=== PATIENT | male | born 1980 | race Caucasian/White ===

== ENCOUNTER 2021-02-08 09:15 | Outpatient (CLI) | payer OTHER, MEDICAID, SELFPAY | END 2021-02-08 09:16 | disposition home or self-care (01) | DX: H91.93 Unspecified hearing loss, bilateral (principal) | CPT/HCPCS: 92555; 92567; 92579 ==

== ENCOUNTER 2022-02-21 13:08 | Outpatient (CLI) | payer OTHER, MEDICAID, SELFPAY | END 2022-02-21 13:09 | disposition home or self-care (01) | PROVIDERS: Visit Provider Family Medicine | DX: H91.93 Unspecified hearing loss, bilateral (principal) | CPT/HCPCS: 92555; 92567; 92579 ==

== ENCOUNTER 2023-02-21 12:38 | Outpatient (CLI) | payer BC, SELFPAY | END 2023-02-21 12:39 | disposition home or self-care (01) | LOC: ANHBWCAUD 12:38 | PROVIDERS: Visit Provider Family Medicine | DX: H91.93 Unspecified hearing loss, bilateral (principal) | CPT/HCPCS: 92555; 92567; 92579 ==

== ENCOUNTER 2024-03-12 09:00 | Outpatient (CLI) | payer BC, SELFPAY | END 2024-03-12 09:01 | disposition home or self-care (01) | LOC: ANHBWCAUD 09:01 | PROVIDERS: Visit Provider Family Medicine | DX: H91.93 Unspecified hearing loss, bilateral (principal) | CPT/HCPCS: 92567 ==

== ENCOUNTER 2025-08-25 08:40 | Outpatient (CLI) | payer BC, SELFPAY ==
--- OUTSIDE RECORDS SUMMARY | 2025-08-25 08:52 | XMS_ITS | Encounter Summary ---
Author Organization [facility] Address [address] [facility] [place] [address] Phone Care Team Providers Care Wireworker Supervisor Name Role Phone Huan Brambila MD Primary Care Provider [phone] Huan Brambila MD Unavailable [phone] Fortunato Rothman MD Unavailable [phone] Encounter Details Date Type Department Care Team (Late st Contact Info) Description 03/08/[address] [facility] 1 [facility] [place] [address] Huan Brambila MD 4 [facility] [address] [place] [address] Encounter for screening for COVID-19 Social History Tobacco Use Types Packs/Day Years Used Date Smoking Tobacco: Never Smokeless Tobacco: Never Sex and Gender Information Value Date Recorded Sex Assigned at Not on file Legal Sex Male 11:39 PM CDT Gender Identity Not on file Sexual Orientation Not on file documented as of this encounter Plan of Treatment Upcoming Encounters Date Type Department Care Team (Late st Contact Info) Description 02/10/2026 11:30 AM CDT Office Visit [facility] Medical Group - Ear, Nose & Throat - [place] [address] [place] [address] Fortunato Rothman MD #[address] [address] documented as of this encounter Procedures Procedure Name Priority Date/Time Associated Diagnosis Comments SARS-COV-2 BY MOLECULAR Routine 03/08/2022 7:03 AM CDT Encounter for screening for COVID-19 documented in this encounter Results * SARS-COV-2 BY MOLECULAR (03/08/2022 7:03 AM CDT) SARSCOV2 NOT DETECTED (Referen ce Range for this test is Not Detected ) [facility] THERMOFISHER FAST DX 03/09/2022 10:50 AM CDT [facility] Comment:This test was perfor med by a RT-PCR method. Other No Phlebotomy Charged / Unknown 03/08/2022 7:03 AM CDT 03/08/2022 11:43 AM CDT Narrative [facility] - 03/09/2022 10:50 AM CDT Authorized Fact Sheets about this test for providers and patients are available at: https://www.fda.gov/medical-devices/olhobviwz-bgavvjzctt-szdaixo-devices/emergen cy-us e-authorizations us Huan Brambila MD MICROBIOLOGY - GENERAL ORDERAB LES Final Result [facility] [address] [place] [address], documented in this encounter Visit Diagnoses Diagnosis Encounter for screening for COVID-19 documented in this encounter Additional Health Concerns Infection Onset Date Last Indicated Resolved Time COVID - 19 03/01/2022 10/04/2022 10/14/2022 12:1 6 AM 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
--- OUTSIDE RECORDS SUMMARY | 2025-08-25 08:52 | XMS_ITS | Encounter Summary ---
Author Organization [facility] Address [address] [facility] [place] [address] Phone Care Team Providers Care Customer Account Manager Name Role Phone Huan Brambila MD Primary Care Provider Huan Brambila MD Unavailable [phone] Fortunato Rothman MD Unavailable [phone] Encounter Details Date Type Department Care Team (Late st Contact Info) Description 03/29/2022 [facility] 1 [facility] [place] [address] Huan Brambila MD 4 [facility] [address] [place] [address] Encounter for screening for COVID-19 [...] Description 02/10/2026 11:30 AM CDT Office Visit [facility] Medical Group - Ear, Nose & Throat - [place] [address] [place] [address] Fortunato Rothman MD #[address] [address] documented as of this encounter Procedures Procedure Name Priority Date/Time Associated Diagnosis Comments SARS-COV-2 BY MOLECULAR Routine 03/29/2022 6:38 AM CDT Encounter for screening for COVID-19 documented in this encounter Results * SARS-COV-2 BY MOLECULAR (03/29/2022 6:38 AM CDT) SARSCOV2 NOT DETECTED (Referen ce Range for this test is Not Detected ) [facility] THERMOFISHER FAST DX 03/29/2022 11:40 PM [address] [facility] Comment:This test was perfor med by a RT-PCR method. Other Non-Phlebotomy Collection / Unknown 03/29/2022 6:38 AM CDT 03/29/2022 12:17 PM CDT Narrative [facility] - 03/29/2022 11:40 PM CDT Authorized Fact Sheets about this test for providers and patients are available at: https://www.fda.gov/medical-devices/srcpqbnzv-hmjmyskepd-avkebtw-devices/emergen cy-us e-authorizations us Huan Brambila MD MICROBIOLOGY - GENERAL ORDERAB LES Final Result [facility] [address] [place] [address], documented in this encounter Visit Diagnoses Diagnosis Encounter for screening for COVID-19 documented in this encounter Additional Health Concerns Infection Onset Date Last Indicated Resolved Time COVID - 19 03/01/2022 10/04/2022 10/14/2022 12:1 6 AM 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 [address] [place] [address] Family Medicine 10/05/21 Fortunato Rothman MD [address] [address] [place] [address] Consulting Physician Otolaryngology 07/22/25 documented as of this encounter
--- OUTSIDE RECORDS SUMMARY | 2025-08-25 08:52 | XMS_ITS | Encounter Summary ---
Author Organization [facility] Address [address] [facility] [place] [address] Phone Care Team Providers Care Team Truck Driver Name Role Phone Huan Brambila MD Primary Care Provider [phone] Huan Brambila MD Unavailable [phone] Fortunato Rothman MD Unavailable [phone] Encounter Details Date Type Department Care Team (Late st Contact Info) Description 01/24/2023 [facility] 1 [facility] [place] [address] Huan Brambila MD 4 [facility] [address] [place] [address] Encounter for screening for COVID-19 [...] Description 02/10/2026 11:30 AM CDT Office Visit [facility] Medical Group - Ear, Nose & Throat - [place] [address] [place] [address] Fortunato Rothman MD #[address] [phone] documented as of this encounter Procedures Procedure Name Priority Date/Time Associated Diagnosis Comments SARS-COV-2 BY MOLECULAR Routine 01/24/2023 7:31 AM RUG BACKING STENCILER Encounter for screening for COVID-19 documented in this encounter Results * SARS-COV-2 BY MOLECULAR (01/24/2023 7:31 AM RUG BACKING STENCILER) SARSCOV2 NOT DETECTED (Referen ce Range for this test is Not Detected ) [facility] THERMOFISHER FAST DX 01/25/2023 8:02 AM RUG BACKING STENCILER [facility] Comment:This test was perfor med by a RT-PCR method. Other Non-Phlebotomy Collection / Unknown 01/24/2023 7:31 AM RUG BACKING STENCILER 01/24/2023 10:51 AM RUG BACKING STENCILER Narrative [facility] - 01/25/2023 8:02 AM RUG BACKING STENCILER Authorized Fact Sheets about this test for providers and patients are available at: https://www.fda.gov/medical-devices/alozmglck-abvsclqqra-fsjhdgv-devices/emergen -us e-authorizations Result [facility] Huan Brambila MD MICROBIOLOGY - GENERAL ORDERAB LES Final Result Performing Organization Address City/State/[facility] Co de Phone Number [facility] [address] [place] [address], documented in this encounter Visit Diagnoses Diagnosis Encounter for screening for COVID-19 documented in this encounter Additional Health Concerns Infection Onset Date Last Indicated Resolved Time COVID - 19 11/22/2022 02/07/2023 02/17/2023 12:1 6 AM CDT documented as of this encounter Care Teams Team Truck Driver Relationship Specialty Start Date End Date Huan Brambila MD [address] [place] [address] [place] [address] PCP - General Family Medicine 10/05/21 Huan Brambila MD [address] [place] [address] [place] [address] Family Medicine 10/05/21 Fortunato Rothman MD [address] [address] Consulting Physician Otolaryngology 07/22/25 documented as of this encounter
--- OUTSIDE RECORDS SUMMARY | 2025-08-25 08:52 | XMS_ITS | Encounter Summary ---
Author Organization [facility] Address [address] [facility] [place] [address] Phone Care Team Providers Care Retort Furnace Operator Name Role Phone Huan Brambila MD Primary Care Provider Huan Brambila MD Unavailable [phone] Fortunato Rothman MD Unavailable [phone] Encounter Details Date Type Department Care Team (Late st Contact Info) Description 03/01/2022 [facility] 1 [facility] [place] [address] Huan Brambila MD 4 [facility] [address] [place] [address] Encounter for screening for other viral diseases Social History Tobacco Use Types Packs/Day Years [...] Description 02/10/2026 11:30 AM CDT Office Visit [facility] Medical Group - Ear, Nose & Throat - [place] [address] [place] [address] Fortunato Rothman MD [address] [address] documented as of this encounter Procedures Procedure Name Priority Date/Time Associated Diagnosis Comments SARS-COV-2 BY MOLECULAR Routine 03/01/2022 6:46 AM CDT Encounter for screening for other viral diseases documented in this encounter Results * SARS-COV-2 BY MOLECULAR (03/01/2022 6:46 AM CDT) SARSCOV2 NOT DETECTED (Referen ce Range for this test is Not Detected ) [facility] THERMOFISHER FAST DX 03/01/2022 11:28 PM CDT [facility] Comment:This test was perfor med by a RT-PCR method. Other No Phlebotomy Charged / Unknown 03/01/2022 6:46 AM CDT 03/01/2022 12:04 PM CDT Narrative [facility] - 03/01/2022 11:28 PM CDT Authorized Fact Sheets about this test for providers and patients are available at: https://www.fda.gov/medical-devices/imskdtjak-oerzhqwwji-qazelfo-devices/emergen -us e-authorizations Result [facility] Huan Brambila MD MICROBIOLOGY - GENERAL ORDERAB LES Final Result [facility] [address] [place] [address], documented in this encounter Visit Diagnoses Diagnosis Encounter for screening for other viral diseases documented in this encounter Additional Health Concerns Infection Onset Date Last Indicated Resolved Time COVID - 19 03/01/2022 10/04/2022 10/14/2022 12:1 6 AM 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
--- OUTSIDE RECORDS SUMMARY | 2025-08-25 08:52 | XMS_ITS | Encounter Summary ---
Author Organization [facility] Address [address] [place] [address] Phone Care Team Providers Care Grain Spouter Name Role Phone Huan Brambila MD Primary Care Provider Huan Brambila MD Unavailable [phone] Fortunato Rothman MD Unavailable [phone] Encounter Details Date Type Department Care Team (Late st Contact Info) Description 01/31/2023 [facility] 1 [facility] [place] [address] Huan Brambila MD 4 [facility] [address] [place] [address] Encounter for screening for COVID-19 [...] Description 02/10/2026 11:30 AM CDT Office Visit [facility] Medical Group - Ear, Nose & Throat - [place] [address] [place] [address] Fortunato Rothman MD #[address] [phone] documented as of this encounter Procedures Procedure Name Priority Date/Time Associated Diagnosis Comments SARS-COV-2 BY MOLECULAR Routine 01/31/2023 7:11 AM VP SOFTWARE SUPPORT Encounter for screening for COVID-19 documented in this encounter Results * SARS-COV-2 BY MOLECULAR (01/31/2023 7:11 AM VP SOFTWARE SUPPORT) SARSCOV2 NOT DETECTED (Referen ce Range for this test is Not Detected ) [facility] THERMOFISHER FAST DX 01/31/2023 7:37 PM VP SOFTWARE SUPPORT [facility] Comment:This test was perfor med by a RT-PCR method. Other Non-Phlebotomy Collection / Unknown 01/31/2023 7:11 AM VP SOFTWARE SUPPORT 01/31/2023 9:54 AM VP SOFTWARE SUPPORT [facility]ative [facility] - 01/31/2023 7:37 PM VP SOFTWARE SUPPORT Authorized Fact Sheets about this test for providers and patients are available at: https://www.fda.gov/medical-devices/sfpkzxqwi-wxfgtbozgv-yleeuow-devices/emergen -us e-authorizations Result [facility] Huan Brambila MD MICROBIOLOGY - GENERAL ORDERAB LES Final Result Performing Organization Address City/State/[facility] Co de Phone Number [facility] [address] [place] [address], documented in this encounter Visit Diagnoses Diagnosis Encounter for screening for COVID-19 documented in this encounter Additional Health Concerns Infection Onset Date Last Indicated Resolved Time COVID - 19 11/22/2022 02/07/2023 02/17/2023 12:1 6 AM CDT documented as of this encounter Care Teams Grain Spouter Relationship Specialty Start Date End Date Huan Brambila MD [address] [place] [address] [place] [address] PCP - General Family Medicine 10/05/21 Huan Brambila MD [address] [place] [address] [place] [address] Family Medicine 10/05/21 Fortunato Rothman MD [address] [address] Consulting Physician Otolaryngology 07/22/25 documented as of this encounter
--- OUTSIDE RECORDS SUMMARY | 2025-08-25 08:52 | XMS_ITS | Encounter Summary ---
Author Organization [facility] Address [address] [facility] [place] [address] Phone Care Team Providers Care Hospital Recruiter Name Role Phone Huan Brambila MD Primary Care Provider [phone] Huan Brambila MD Unavailable [phone] Fortunato Rothman MD Unavailable [phone] Encounter Details Date Type Department Care Team (Late st Contact Info) Description 03/18/2025 [facility] 1 [facility] [place] [address] Huan Brambila MD [address] [facility] [place] [address] Major depressive disorder, recurrent, mild (HCC); Severe intellectual disabilities; Vitamin D deficiency, unspecified; Down syndrome, unspecified Social History Tobacco Use Types Packs/Day Years [...] Description 02/10/2026 11:30 AM CDT [facility] Visit [facility] [place] #[address] [place] [address] Fortunato Rothman MD #[facility] [address] [address] documented as of this encounter Procedures Procedure Name Priority Date/Time Associated Diagnosis Comments VITAMIN D, 25 HYDROXY TOTAL Routine 03/18/2025 7:09 AM CDT Major depressive disorder, recurrent, mild (HCC) Severe intellectual disabilities Vitamin D deficiency, unspecified Down syndrome, unspecified CBC WITH AUTO DIFFERENTIAL Routine 03/18/2025 7:09 AM CDT Major depressive disorder, recurrent, mild (HCC) Severe intellectual disabilities Vitamin D deficiency, unspecified Down syndrome, unspecified THYROXINE (T4) FREE Routine 03/18/2025 7 :09 AM CDT Major depressive disorder, recurrent, mild (HCC) Severe intellectual disabilities Vitamin D deficiency, unspecified Down syndrome, unspecified THYROID STIMULATING HORMONE (TSH) Routine 03/18/2025 7:09 AM CDT Major depressive disorder, recurrent, mild (HCC) Severe intellectual disabilities Vitamin D deficiency, unspecified Down syndrome, unspecified LIPID PANEL Routine 03/18/2025 7:09 AM CDT Major depressive disorder, recurrent, mild (HCC) Severe intellectual disabilities Vitamin D deficiency, unspecified Down syndrome, unspecified CMP (COMPREHENSIVE METABOLIC PANEL) Routine 03/18/2025 7:09 AM CDT Major depressive disorder, recurrent, mild (HCC) Severe intellectual disabilities Vitamin D deficiency, unspecified Down syndrome, unspecified COMPLETE BLOOD COUNT (CBC) WITH DIFF Routine 03/18/2025 7:09 AM CDT Major depressive disorder, recurrent, mild (HCC) Severe intellectual disabilities Vitamin D deficiency, unspecified Down syndrome, unspecified documented in this encounter Results * (ABNORMAL) CBC WITH AUTO DIFFERENTIAL (03/18/2025 7:09 AM CDT) WBC 4.82 4.00 - 12.00 10(3)/mcL 03/18/2025 8:[address] [facility] RBC 5.29 4.40 - 5.80 10(6)/mcL 03/18/2025 8:[address] [facility] HEMOGLOBIN (HGB) 17.8(H) 13.0 - 16.5 g/dL 03/18/2025 8:[address] [facility] HEMATOCRIT (HCT) 50.5(H) 38.0 - 50.0 % 03/18/2025 8:[address] [facility] MCV 95.5 82.0 - 96.0 fL 03/18/2025 8:[address] [facility] MCH 33.6(H) 26.0 - 32.0 pg 03/18/2025 8:[address] [facility] MCHC 35.2 31.0 - 36.0 g/dL 03/18/2025 8:[address] [facility] PLATELET COUNT 187 140 - 440 10(3)/mcL 03/18/2025 8:[address] [facility] RDW 14.1 11.8 - 15.5 % 03/18/2025 8:[address] [facility] MPV 10.3 8.0 - 12.6 fL 03/18/2025 8:[address] [facility] NEUTROPHILS 48.4 40.0 - 68.0 % 03/18/2025 8:[address] [facility] LYMPHOCYTES 37.8 19.0 - 49.0 % 03/18/2025 8:[address] [facility] MONOCYTES 10.0 3.0 - 13.0 % 03/18/2025 8:[address] [facility] EOSINOPHILS 1.9 0.0 - 8.0 % 03/18/2025 8:[address] [facility] BASOPHILS 1.9(H) 0.0 - 1.0 % 03/18/2025 8:[address] [facility] ABSOLUTE NEUTROPHILS 2.34 1.40 - 5.30 10(3)/mcL 03/18/2025 8:[address] [facility] ABSOLUTE LYMPHOCYTES 1.82 0.90 - 3.30 10(3)/[facility] 03/18/2025 8:[address] [facility] ABSOLUTE MONOCYTES 0.48 0.10 - 0.90 10(3)/[facility] 03/18/2025 8:[address] [facility] ABSOLUTE EOSINOPHIL 0.09 0.00 - 0.50 10(3)/[facility] 03/18/2025 8:[address] [facility] ABSOLUTE BASOPHILS 0.09 0.00 - 0.10 10(3)/[facility] 03/18/2025 8:[address] [facility] NRBC PER 100 WBC 0 03/18/20 8:[address] [facility] Blood Venipuncture / Unknown 03/18/2025 7:09 AM CDT 03/18/2025 8:41 AM CDT us Huan Brambila MD HEMATOLOGY ORDERABLES Final Re sult [facility] [address] [place] [address] * VITAMIN D, 25 HYDROXY TOTAL (03/18/2025 7:09 AM CDT) VITAMIN D, 25 HYDROX 39.8 ng/mL 03/18/2025 9:[address] [facility] Blood Venipuncture / Unknown 03/18/2025 7:09 AM CDT 03/18/2025 8:41 AM CDT Narrative [facility] - 03/18/2025 9:29 AM CDT Published reference ranges for Vitamin D vary depending on time and place and method of testing, and on patient's age, sex, ethnicity and levels of other measured analytes such as parathormone, calcium and phosphorus. The result should be evaluated in conjunction with clinical findings and suspicions. [employer] and Endocrine Clinical Practice Guidelines: Status Vitamin D levels (ng/mL) Deficient <=20 At risk of inadequacy 21-29 Sufficient 30-100 Centers of Disease Control and Prevention Guidelines: Status Vitamin D levels (ng/mL) Deficient <13 At risk of inadequacy 13-19 Sufficient 20-50 Possibly harmful >50 References: [employer], 2010 Dietary reference intakes for calcium and vitamin D. [place]: The National Academies Press. Rohan M, Tyrel N, Sixto JENKINS, et al., Evaluation, treatment, and prevention of Vitamin D deficiency: an Endocrinology Clinical Practice Guideline. JCEM 2011 96: 7 5080-8094. Blanca A, Baldomero C, Nathalie D, et al., Vitamin D Status: [place], , [facility] data brief, no. 59, MD [place]: [facility] Statistics. 2011. Huan Brambila MD CHEMISTRY ORDERABLES Final Res ult Performing Organization Address City/[facility]/ZIP Co de Phone Number [facility] [address] [place] [address] * THYROID STIMULATING HORMONE (TSH) (03/18/2025 7:09 AM CDT) TSH 2.240 0.300 - 5.000 mIU/L 03/18/2025 9:31 AM CDT [facility] Blood Venipuncture / Unknown 03/18/2025 7:09 AM CDT 03/18/2025 8:41 AM CDT Huan Brambila MD CHEMISTRY ORDERABLES Final Res ult Performing Organization Address [facility] Co de Phone Number [facility] [address] [place] [address] * THYROXINE (T4) FREE (03/18/2025 7:09 AM CDT) T4 FREE 1.0 0.7 - 1.9 ng/dL 03/18/2025 9:[address] [facility] Blood Venipuncture / Unknown 03/18/2025 7:09 AM CDT 03/18/2025 8:41 AM CDT Huan Brambila MD CHEMISTRY ORDERABLES Final Res ult Performing Organization Address City/[facility]/ZIP Co de Phone Number [facility] [address] [place] [address] * LIPID PANEL (03/18/2025 7:09 AM CDT) CHOLESTEROL 167 <200 mg/dL 03/18/2025 9:[address] [facility] TRIGLYCERIDES 83 <150 mg/dL 03/18/2025 9:[address] [facility] HDL CHOLESTEROL 46 >40 mg/dL 9:[address] [facility] LDL 104 <130 mg/dL 03/18/2025 9:[address] [facility] VLDL 17 10 - 50 mg/dL 03/18/2025 9:[address] [facility] CHOL/HDL RATIO 3.6 0.0 - 4.4 03/18/2025 9:[address] [facility] NON-HDL CHOLESTEROL 121 <130 mg/dL 03/18/2025 9:[address] [facility] Blood Venipuncture / Unknown 03/18/2025 7:09 AM CDT 03/18/2025 8:41 AM CDT us Huan Brambila MD CHEMISTRY ORDERABLES Final Res ult Performing Organization Address [facility]/ZIP Co de Phone Number [facility] [address] [place] [address] * (ABNORMAL) CMP (COMPREHENSIVE METABOLIC PANEL) (03/18/2025 7:09 AM CDT) SODIUM 142 136 - 145 mmol/L 03/18/2025 9:07 AM CDT [facility] POTASSIUM 3.8 3.5 - 5.1 mmol/L 03/18/2025 9:07 AM CDT [facility] CHLORIDE 106 98 - 107 mmol/L 03/18/2025 9:07 AM T [facility] CO2, VENOUS 28 22 - 30 mmol/L 03/18/2025 9:07 AM CDT [facility] ANION GAP 11.8 <18.0 mmol/L 03/18/2025 9:07 AM CDT [facility] GLUCOSE 81 70 - 99 mg/dL 03/18/2025 9:07 AM CDT [facility] BUN 17 9 - 21 mg/dL 03/18/2025 9:07 AM T [facility] CREATININE, BLOOD 0.73 0.70 - 1.30 mg/dL 03/18/2025 9:07 AM T [facility] BUN/CREATININE RATIO 23(H) 12 - 20 ratio 03/18/2025 9:07 AM T [facility] TOTAL PROTEIN 7.2 6.0 - 8.0 g/dL 03/18/2025 9:07 AM T [facility] ALBUMIN 3.8 3.5 - 5.0 g/dL 03/18/2025 9:07 AM [facility] A/G RATIO 1.1 1.0 - 2.2 03/18/2025 9:07 AM T [facility] CALCIUM 8.6(L) 8.7 - 10.5 mg/dL 03/18/2025 9:07 AM T [facility] T BILI 1.5(H) 0.2 - 1.2 mg/dL 03/18/2025 9:07 AM CDT [facility] SGOT (AST) 27 <43 U/L 03/18/2025 9:07 AM T [facility] SGPT (ALT) 23 <56 U/L 03/18/2025 9:[address] [facility] ALKALINE PHOSPHATASE 65 40 - 150 U/L 03/18/2025 9:[address] [facility] GFR, ESTIMATED >60 >=60 03/18/2025 9:[address] [facility] Comment: Creatinine Clearance is the preferred criteria for selecting drug dose adjustments in renally impaired patients. The GFR is provided as additional pertinent clinical information. GFR is reported in mL/min/1.73 sq m. Calculation based on the Chronic Kidney Disease Epidemiology Collaboration (CKD- EPI) equation refit without adjustment for race. GFR, EST. >60 >=60 025 9:[address] [facility] GFR, EST. NONAFRICAN >60 >=60 03/18/2025 9:[address] [facility] Blood Venipuncture / Unknown 03/18/2025 7:09 AM CDT 03/18/2025 8:41 AM CDT us Huan Brambila MD CHEMISTRY ORDERABLES Final Res ult [facility] [address] [place] [address] documented in this encounter Visit Diagnoses Diagnosis Major depressive disorder, recurrent, mild Major depressive disorder, recurrent episode, mild Severe intellectual disabilities Vitamin D deficiency, unspecified Down syndrome, unspecified documented in this encounter Care Teams Hospital Recruiter Relationship Specialty Start Date End Date Huan Brambila MD [address] [facility] [place] [address] PCP - General Family Medicine 10/05/21 Huan Brambila MD [address] [facility] [place] [address] Family Medicine 10/05/21 Fortunato Rothman MD #[address] [facility] [address] [address] Consulting Physician Otolaryngology 07/22/25 documented as of this encounter
--- OUTSIDE RECORDS SUMMARY | 2025-08-25 08:52 | XMS_ITS | Encounter Summary ---
Author Organization [facility] Address [address] [place] [facility] [place] [address] Phone Care Team Providers Care Director Digital Strategy Name Role Phone Huan Brambila MD Primary Care Provider Huan Brambila MD Unavailable [phone] Fortunato Rothman MD Unavailable [phone] Encounter Details Date Type Department Care Team (Late st Contact Info) Description 03/15/[address] 1 [facility] [place] [address] Huan Brambila MD 4 [facility] [address] [place] [address] Encounter for screening for COVID-19 [...] 02/10/2026 11:30 AM CDT Office Visit [facility] - Ear, Nose & Throat - [place] #[address] [place] [address] Fortunato Rothman MD #2 [facility] [address] [address] documented as of this encounter Procedures Procedure Name Priority Date/Time Associated Diagnosis Comments SARS-COV-2 BY MOLECULAR Routine 03/15/2022 6:58 AM CDT Encounter for screening for COVID-19 documented in this encounter Results * SARS-COV-2 BY MOLECULAR (03/15/2022 6:58 AM CDT) SARSCOV2 NOT DETECTED (Referen ce Range for this test is Not Detected ) [facility] THERMOFISHER FAST DX 03/15/2022 11:11 PM CDT [facility] Comment:This test was perfor med by a RT-PCR method. Other Non-Phlebotomy Collection / Unknown 03/15/2022 6:58 AM CDT 03/15/2022 12:54 PM CDT Narrative [facility] - 03/15/2022 11:11 PM CDT Authorized Fact Sheets about this test for providers and patients are available at: https://www.fda.gov/medical-devices/ugoavprle-diyruioyhl-xukbatf-devices/emergen cy-us e-authorizations us Huan Brambila MD MICROBIOLOGY - GENERAL ORDERAB LES Final Result [facility] [address] [place] [address], documented in this encounter Visit Diagnoses Diagnosis Encounter for screening for COVID-19 documented in this encounter Additional Health Concerns Infection Onset Date Last Indicated Resolved Time COVID - 19 03/01/2022 10/04/2022 10/14/2022 12:1 6 AM FORENSIC TOXICOLOGIST COVID - 19 11/22/2022 02/07/2023 02/17/2023 12:1 6 AM CDT documented as of this encounter Care Teams Director Digital Strategy Relationship Specialty Start Date End Date Huan Brambila MD [address] [place] [address] [address] [place] [address] PCP - General Family Medicine 10/05/21 Huan Brambila MD [address] [facility] [address] [place] [address] Family Medicine 10/05/21 Fortunato Rothman MD #2 [facility] [address] [place] [address] Consulting Physician Otolaryngology 07/22/25 documented as of this encounter
--- OUTSIDE RECORDS SUMMARY | 2025-08-25 08:52 | XMS_ITS | Encounter Summary ---
Author Organization [facility] Address [address] [facility] [place] [address] Phone Care Team Providers Care Antique Furniture Reproducer Name Role Phone Huan Brambila MD Primary Care Provider Huan Brambila MD Unavailable [phone] Fortunato Rothman MD Unavailable [phone] Encounter Details Date Type Department Care Team (Late st Contact Info) Description 04/26/2022 [facility] 1 [facility] [place] [address] Huan Brambila MD 4 [facility] [address] [place] [address] Encounter for screening for COVID-19 [...] Description 02/10/2026 11:30 AM CDT Office Visit [facility] Medical [facility] - Ear, Nose & Throat - [place] #[address] [place] [address] Fortunato Rothman MD #[address] [facility] [address] [address] documented as of this encounter Procedures Procedure Name Priority Date/Time Associated Diagnosis Comments SARS-COV-2 BY MOLECULAR Routine 04/26/2022 6:54 AM CDT Encounter for screening for COVID-19 documented in this encounter Results * SARS-COV-2 BY MOLECULAR (04/26/2022 6:54 AM CDT) SARSCOV2 NOT DETECTED (Referen ce Range for this test is Not Detected ) [facility] THERMOFISHER FAST DX 04/27/2022 10:25 AM CDT [facility] Comment:This test was perfor med by a RT-PCR method. Other No Phlebotomy Charged / Unknown 04/26/2022 6:54 AM CDT 04/26/2022 11:51 AM CDT N[facility]ative [facility] 04/27/2022 10:25 AM CDT Authorized Fact Sheets about this test for providers and patients are available at: https://www.fda.gov/medical-devices/geymjwhlv-dakzwimeuu-cospbay-devices/emergen cy-us e-authorizations us Huan Brambila MD MICROBIOLOGY - GENERAL ORDERAB LES Final Result [facility] [address] [place] [address], documented in this encounter Visit Diagnoses Diagnosis Encounter for screening for COVID-19 documented in this encounter Additional Health Concerns Infection Onset Date Last Indicated Resolved Time COVID - 19 03/01/2022 10/04/2022 10/14/2022 12:1 6 AM GEOLOGY INSTRUCTOR COVID - 19 11/22/2022 02/07/2023 02/17/2023 12:1 6 AM CDT documented as of this encounter Care Teams Antique Furniture Reproducer Relationship Specialty Start Date End Date Huan Brambial MD 4 [facility] [address] [place] [address] PCP - General Family Medicine 10/05/21 Huan Brambila MD 4 [facility] [address] [place] [address] Family Medicine 10/05/21 Fortunato Rothman MD #2 [facility] [address] [place] [address] Consulting Physician Otolaryngology 07/22/25 documented as of this encounter
--- OUTSIDE RECORDS SUMMARY | 2025-08-25 08:52 | XMS_ITS | Encounter Summary ---
Author Organization [facility] Address [address] [facility] [place] [address] Phone Care Team Providers Care Office Machine Embossograph Operator Name Role Phone Huan Brambila MD Primary Care Provider Huan Brambila MD Unavailable [phone] Fortunato Rothman MD Unavailable [phone] Encounter Details Date Type Department Care Team (Late st Contact Info) Description 01/03/2023 [facility] 1 [facility] [place] [address] Huan Brambila MD 4 [facility] [address] [place] [address] Encounter for screening for COVID-19 [...] Description 02/10/2026 11:30 AM CDT Office Visit [facility] - Ear, Nose & Throat - [place] #[address] [place] [address] Fortunato Rothman MD #[address] [facility] [address] [phone] documented as of this encounter Procedures Procedure Name Priority Date/Time Associated Diagnosis Comments SARS-COV-2 BY MOLECULAR Routine 01/03/2023 7:18 AM AMMUNITION OFFICER Encounter for screening for COVID-19 documented in this encounter Results * SARS-COV-2 BY MOLECULAR (01/03/2023 7:18 AM AMMUNITION OFFICER) SARSCOV2 NOT DETECTED (Referen ce Range for this test is Not Detected ) [facility] THERMOFISHER FAST DX 01/03/2023 11:05 PM AMMUNITION OFFICER [facility] Comment:This test was perfor med by a RT-PCR method. Other Non-Phlebotomy Collection / Unknown 01/03/2023 7:18 AM AMMUNITION OFFICER 01/03/2023 10:07 AM AMMUNITION OFFICER Narrative [facility] - 01/03/2023 11:05 PM AMMUNITION OFFICER Authorized Fact Sheets about this test for providers and patients are available at: https://www.fda.gov/medical-devices/djldjxzod-qynoztyllu-dmulkum-devices/emergen -us e-authorizations Result [facility] Huan Brambila MD MICROBIOLOGY - GENERAL ORDERAB LES Final Result Performing Organization Address City/State/[facility] Co de Phone Number [facility] [address] [place] [address], documented in this encounter Visit Diagnoses Diagnosis Encounter for screening for COVID-19 documented in this encounter Additional Health Concerns Infection Onset Date Last Indicated Resolved Time COVID - 19 11/22/2022 02/07/2023 02/17/2023 12:1 6 AM CDT documented as of this encounter Care Teams Office Machine Embossograph Operator Relationship Specialty Start Date End Date Huan Brambila MD [address] [place] [address] [place] [address] PCP - General Family Medicine 10/05/21 Huan Brambila MD [address] [place] [address] [place] [address] Family Medicine 10/05/21 Fortunato Rothman MD #[address] [facility] [address] [address] Consulting Physician Otolaryngology 07/22/25 documented as of this encounter
--- OUTSIDE RECORDS SUMMARY | 2025-08-25 08:52 | XMS_ITS | Encounter Summary ---
Author Organization [facility] Address [address] [place] [facility] [place] [address] Phone Care Team Providers Care Shift Lab Technician Name Role Phone Huan Brambila MD Primary Care Provider Huan Brambila MD Unavailable [phone] Fortunato Rothman MD Unavailable [phone] Encounter Details Date Type Department Care Team (Late st Contact Info) Description 04/12/2022 [facility] 1 [facility] [place] [address] Huan Brambila MD 4 [facility] [address] [place] [address] Encounter for screening for COVID-19 [...] Description 02/10/2026 11:30 AM CDT Office Visit [facility] Medical Group - Ear, Nose & Throat - [place] #[address] [place] [address] Fortunato Rothman MD #[address] [facility] [address] [address] documented as of this encounter Procedures Procedure Name Priority Date/Time Associated Diagnosis Comments SARS-COV-2 BY MOLECULAR Routine 04/12/2022 6:46 AM CDT Encounter for screening for COVID-19 documented in this encounter Results * SARS-COV-2 BY MOLECULAR (04/12/2022 6:46 AM CDT) SARSCOV2 NOT DETECTED (Referen ce Range for this test is Not Detected ) [facility] THERMOFISHER FAST DX 04/13/2022 3:45 PM CDT [facility] Comment:This test was perfor med by a RT-PCR method. Other Non-Phlebotomy Collection / Unknown 04/12/2022 6:46 AM CDT 04/12/2022 11:55 AM CDT Narrative [facility] - 04/13/2022 3:45 PM CDT Authorized Fact Sheets about this test for providers and patients are available at: https://www.fda.gov/medical-devices/itkmjusxv-ptisizuqdb-hdwmyih-devices/emergen cy-us e-authorizations us Huan Brambila MD MICROBIOLOGY - GENERAL ORDERAB LES Final Result [facility] [address] [place] [address], documented in this encounter Visit Diagnoses Diagnosis Encounter for screening for COVID-19 documented in this encounter Additional Health Concerns Infection Onset Date Last Indicated Resolved Time COVID - 19 03/01/2022 10/04/2022 10/14/2022 12:1 6 AM GENERAL LEDGER BOOKKEEPER COVID - 19 11/22/2022 02/07/2023 02/17/2023 12:1 6 AM CDT documented as of this encounter Care Teams Shift Lab Technician Relationship Specialty Start Date End Date Huan Brambila MD 4 [facility] [address] [place] [address] PCP - General Family Medicine 10/05/21 Huan Brambila MD 4 [facility] [address] [place] [address] Family Medicine 10/05/21 Fortunato Rothman MD #[address] [facility] [place] [address] Consulting Physician Otolaryngology 07/22/25 documented as of this encounter
--- OUTSIDE RECORDS SUMMARY | 2025-08-25 08:52 | XMS_ITS | Encounter Summary ---
Author Organization [facility] Address [address] [facility] [place] [address] Phone Care Team Providers Care Family Independence Case Manager Name Role Phone Huan Brambila MD Primary Care Provider Huan Brambila MD Unavailable [phone] Fortunato Rothman MD Unavailable [phone] Encounter Details Date Type Department Care Team (Late st Contact Info) Description 01/10/2023 [facility] 1 [facility] [place] [address] Huan Brambila MD [address] [place] [address] [address] [place] [address] Encounter for screening for COVID-19 [...] Description 02/10/2026 11:30 AM CDT Office Visit [facility] Medical Group - Ear, Nose & Throat - [place] #2 [place] [address] Fortunato Rothman MD #2 [place] [address] [phone] documented as of this encounter Procedures Procedure Name Priority Date/Time Associated Diagnosis Comments SARS-COV-2 BY MOLECULAR Routine 01/10/2023 7:39 AM STRIPPER AND OPAQUER APPRENTICE Encounter for screening for COVID-19 documented in this encounter Results * SARS-COV-2 BY MOLECULAR (01/10/2023 7:39 AM STRIPPER AND OPAQUER APPRENTICE) SARSCOV2 NOT DETECTED (Referen ce Range for this test is Not Detected ) [facility] THERMOFISHER FAST DX 01/10/2023 8:07 PM STRIPPER AND OPAQUER APPRENTICE [facility] Comment:This test was perfor med by a RT-PCR method. Other COVID 19 Collection / Unknown 01/10/2023 7:39 AM STRIPPER AND OPAQUER APPRENTICE 01/10/2023 10:05 AM STRIPPER AND OPAQUER APPRENTICE Narrative [facility] - 01/10/2023 8:07 PM STRIPPER AND OPAQUER APPRENTICE Authorized Fact Sheets about this test for providers and patients are available at: https://www.fda.gov/medical-devices/wozwhnwcg-ibgkxjmkro-dxdxiyv-devices/emergen -us e-authorizations Result [facility] Huan Brambila MD MICROBIOLOGY - GENERAL ORDERAB LES Final Result [facility] [address] [place] [address], documented in this encounter Visit Diagnoses Diagnosis Encounter for screening for COVID-19 documented in this encounter Additional Health Concerns Infection Onset Date Last Indicated Resolved Time COVID - 19 11/22/2022 02/07/2023 02/17/2023 12:1 6 AM CDT documented as of this encounter Care Teams Family Independence Case Manager Relationship Specialty Start Date End Date Huan Brambila MD [address] [place] [address] [place] [address] PCP - General Family Medicine 10/05/21 Huan Brambila MD [address] [place] [address] [place] [address] Family Medicine 10/05/21 Fortunato Rothman MD [address] [place] [address] [address] Consulting Physician Otolaryngology 07/22/25 documented as of this encounter
--- OUTSIDE RECORDS SUMMARY | 2025-08-25 08:52 | XMS_ITS | Encounter Summary ---
Author Organization [facility] Address [address] [facility] [place] [address] Phone Care Team Providers Care Manufacturing Maintenance Technician Name Role Phone Huan Brambila MD Primary Care Provider Huan Brambila MD Unavailable [phone] Fortunato Rothman MD Unavailable [phone] Encounter Details Date Type Department Care Team (Late st Contact Info) Description 04/19/2022 [facility] 1 [facility] [place] [address] Huan Brambila MD 4 [facility] [address] [place] [address] Encounter for screening for COVID-19 [...] Group - Ear, Nose & Throat - [place] #2 [place] [address] Fortunato Rothman MD #[address] [place] [address] [address] documented as of this encounter Procedures Procedure Name Priority Date/Time Associated Diagnosis Comments SARS-COV-2 BY MOLECULAR Routine 04/19/2022 6:40 AM CDT Encounter for screening for COVID-19 documented in this encounter Results * SARS-COV-2 BY MOLECULAR (04/19/2022 6:40 AM CDT) SARSCOV2 NOT DETECTED (Referen ce Range for this test is Not Detected ) [facility] THERMOFISHER FAST DX 04/20/2022 9:19 AM CDT [facility] Comment:This test was perfor med by a RT-PCR method. Other Non-Phlebotomy Collection / Unknown 04/19/2022 6:40 AM CDT 04/19/2022 9:55 AM CDT Narrative [facility] - 04/20/2022 9:19 AM CDT Authorized Fact Sheets about this test for providers and patients are available at: https://www.fda.gov/medical-devices/erfujykmq-qaehhwjgaq-nrookhi-devices/emergen cy-us e-authorizations us Huan Brambila MD MICROBIOLOGY - GENERAL ORDERAB LES Final Result [facility] [address] [place] [address], documented in this encounter Visit Diagnoses Diagnosis Encounter for screening for COVID-19 documented in this encounter Additional Health Concerns Infection Onset Date Last Indicated Resolved Time COVID - 19 03/01/2022 10/04/2022 10/14/2022 12:1 6 AM FLIGHT COORDINATOR COVID - 19 11/22/2022 02/07/2023 02/17/2023 12:1 6 AM CDT documented as of this encounter Care Teams Manufacturing Maintenance Technician Relationship Specialty Start Date End Date Huan Brambila MD [address] [place] [address] [address] [place] [address] PCP - General Family Medicine 10/05/21 Huan Brambila MD [address] [facility] [address] [place] [address] Family Medicine 10/05/21 Fortunato Rothman MD #[address] [place] [address] [place] [address] Consulting Physician Otolaryngology 07/22/25 documented as of this encounter
--- OUTSIDE RECORDS SUMMARY | 2025-08-25 08:52 | XMS_ITS | Encounter Summary ---
Author Organization [facility] Address [address] [facility] [place] [address] Phone Care Team Providers Care Snow Ranger Name Role Phone Huan Brambila MD Primary Care Provider Huan Brambila MD Unavailable [phone] Fortunato Rothman MD Unavailable [phone] Encounter Details Date Type Department Care Team (Late st Contact Info) Description 04/05/2022 [facility] 1 [facility] [place] [address] Huan Brambila MD 4 [facility] [address] [place] [address] Encounter for screening for COVID-19 [...] Description 02/10/2026 11:30 AM CDT Office Visit [facility] Medical Group - Ear, Nose & Throat - [place] #[address] [place] [address] Fortunato Rothman MD #[address] [place] [address] [address] documented as of this encounter Procedures Procedure Name Priority Date/Time Associated Diagnosis Comments SARS-COV-2 BY MOLECULAR Routine 04/05/2022 6:53 AM CDT Encounter for screening for COVID-19 documented in this encounter Results * SARS-COV-2 BY MOLECULAR (04/05/2022 6:53 AM CDT) SARSCOV2 NOT DETECTED (Referen ce Range for this test is Not Detected ) [facility] THERMOFISHER FAST DX 04/06/2022 10:13 AM CDT [facility] Comment:This test was perfor med by a RT-PCR method. Other Non-Phlebotomy Collection / Unknown 04/05/2022 6:53 AM CDT 04/05/2022 12:59 PM CDT Narrative [facility] - 04/06/2022 10:13 AM CDT Authorized Fact Sheets about this test for providers and patients are available at: https://www.fda.gov/medical-devices/rulvmicmr-erocqbfdga-yhzlqzd-devices/emergen cy-us e-authorizations us Huan Brambila MD MICROBIOLOGY - GENERAL ORDERAB LES Final Result [facility] [address] [place] [address], documented in this encounter Visit Diagnoses Diagnosis Encounter for screening for COVID-19 documented in this encounter Additional Health Concerns Infection Onset Date Last Indicated Resolved Time COVID - 19 03/01/2022 10/04/2022 10/14/2022 12:1 6 AM ELECTRIC REFRIGERATOR SERVICER COVID - 19 11/22/2022 02/07/2023 02/17/2023 12:1 6 AM CDT documented as of this encounter Care Teams Snow Ranger Relationship Specialty Start Date End Date Huan Brambila MD [address] [place] [address] [address] [place] [address] PCP - General Family Medicine 10/05/21 Huan Brambila MD [address] [facility] [address] [place] [address] Family Medicine 10/05/21 Fortunato Rothman MD #[address] [place] [address] [place] [address] Consulting Physician Otolaryngology 07/22/25 documented as of this encounter
--- OUTSIDE RECORDS SUMMARY | 2025-08-25 08:52 | XMS_ITS | Encounter Summary ---
Author Organization [facility] Address [address] [facility] [place] [address] Phone Care Team Providers Care Oven Unloader Name Role Phone Huan Brambila MD Primary Care Provider [phone] Huan Brambila MD Unavailable [phone] Fortunato Rothman MD Unavailable [phone] Encounter Details Date Type Department Care Team (Late st Contact Info) Description 01/17/2023 [facility] 1 [facility] [place] [address] Huan Brambila MD 4 [facility] [address] [place] [address] Encounter for screening for COVID-19 [...] Description 02/10/2026 11:30 AM CDT Office Visit [facility] Medical [facility] - Ear, Nose & Throat - [place] #[address] [place] [address] Fortunato Rothman MD #[address] [place] [address] [phone] documented as of this encounter Procedures Procedure Name Priority Date/Time Associated Diagnosis Comments SARS-COV-2 BY MOLECULAR Routine 01/17/2023 7:19 AM LIBRARY CIRCULATION ASSISTANT Encounter for screening for COVID-19 documented in this encounter Results * SARS-COV-2 BY MOLECULAR (01/17/2023 7:19 AM LIBRARY CIRCULATION ASSISTANT) SARSCOV2 NOT DETECTED (Referen ce Range for this test is Not Detected ) [facility] THERMOFISHER FAST DX 01/18/2023 12:34 AM LIBRARY CIRCULATION ASSISTANT [facility] Comment:This test was perfor med by a RT-PCR method. Other Non-Phlebotomy Collection / Unknown 01/17/2023 7:19 AM LIBRARY CIRCULATION ASSISTANT 01/17/2023 10:14 AM LIBRARY CIRCULATION ASSISTANT Narrative [facility] - 01/18/2023 12:34 AM LIBRARY CIRCULATION ASSISTANT Authorized Fact Sheets about this test for providers and patients are available at: https://www.fda.gov/medical-devices/xbnoodwhu-kmpnuwfjjq-koenhkg-devices/emergen -us e-authorizations Result [facility] Huan Brambila MD MICROBIOLOGY - GENERAL ORDERAB LES Final Result Performing Organization Address City/State/[facility] Co de Phone Number [facility] [address] [place] [address], documented in this encounter Visit Diagnoses Diagnosis Encounter for screening for COVID-19 documented in this encounter Additional Health Concerns Infection Onset Date Last Indicated Resolved Time COVID - 19 11/22/2022 02/07/2023 02/17/2023 12:1 6 AM CDT documented as of this encounter Care Teams Oven Unloader Relationship Specialty Start Date End Date Huna Brambila MD [address] [place] [address] [place] [address] PCP - General Family Medicine 10/05/21 Huan Brambila MD [address] [place] [address] [place] [address] Family Medicine 10/05/21 Fortunato Rothman MD #[address] [place] [address] [address] Consulting Physician Otolaryngology 07/22/25 documented as of this encounter
--- OUTSIDE RECORDS SUMMARY | 2025-08-25 08:52 | XMS_ITS | Encounter Summary ---
Author Organization [facility] Address [address] [facility] [address] [facility] [place] [address] Phone Care Team Providers Care Casino Porter Name Role Phone Huan Brambila MD Primary Care Provider Huan Brambila MD Unavailable [phone] Fortunato Rothman MD Unavailable [phone] Encounter Details Date Type Department Care Team (Late st Contact Info) Description 07/01/2025 [facility] [address] [place] [address] Huan Brambila MD [address] [facility] [place] [address] Down syndrome, unspecified; Vitamin D deficiency, unspecified; Major depressive disorder, recurrent, mild (HCC); Severe intellectual disabilities Social History Tobacco Use Types Packs/Day Years [...] Group - Ear, Nose & Throat - [place] [address] [place] [address] Fortunato Rothman MD [address] [place] [address] [address] documented as of this encounter Procedures Procedure Name Priority Date/Time Associated Diagnosis Comments QUANTIFERON-TB GOLD PLUS Routine 07/01/2025 7:03 AM CDT Down syndrome, unspecified Vitamin D deficiency, unspecified Major depressive disorder, recurrent, mild (HCC) Severe intellectual disabilities documented in this encounter Results * QUANTIFERON-TB GOLD PLUS (07/01/2025 7:03 AM CDT) NIL CONTROL 0.01 <8.01 IU/mL 07/03/2025 9:46 AM CDT [facility] TB ANTIGEN 1 0.02 <0.35 IU/mL 07/03/2025 9:46 AM CDT [facility] TB ANTIGEN 2 0.02 <0.35 IU/mL 07/03/2025 9:46 AM CDT [facility] MITOGEN CONTROL 9.99 >0.49 IU/mL 07/03/20 9:46 AM CDT [facility] INTEPRETATION TB NEGATIVE NEGATIVE, NEGATIVE (TB antigen response less than 25% of internal negative control value) 07/03/2025 9:46 AM CDT [facility] Comment:No immune response t o Mycobacterium tuberculosis antigens was noted. M. tuberculosis infection unlikely. Blood Venipuncture / Unknown 07/01/2025 7:03 AM CDT 07/01/2025 9:10 AM CDT Narrative [facility] - 07/03/2025 9:46 AM CDT A POSITIVE QUANTIFERON-TB GOLD PLUS RESULT SHOULD NOT BE THE SOLE OR DEFINITIVE BASIS FOR DETERMINING INFECTION WITH M.TUBERCULOSIS. Diagnosing or excluding tuberculosis disease, and assessing the probability of LTBI, requires a combination of epidemiological, historical, medical and diagnostic findings (e.g., acid fast bacilli (AFB) smear and culture, chest xray) that should be taken into account when interpreting QFT-Plus results. Furthermore, the magnitude of the measured gamma interferon level cannot be correlated to stage or degree of infection, level of immune responsiveness, or likelihood for progression to active disease. The Nil control adjusts for background (e.g., elevated levels of circulating gamma interferon or presence of heterophile antibodies). The Mitogen control serves as an internal positive control and verifies each specimen tested can produce a gamma interferon response. Low mitogen may occur with insufficient lymphocytes, reduced lymphocyte activity due to improper specimen handling, filling/mixing of the mitogen tube, or inability of the patient's lymphocytes to generate gamma interferon. Infection with other Mycobacteria, including M. kansasii, M. szulgai, and M. marinum, may cause false positive results. A negative QuantiFERON-TB Gold Plus result does not preclude the possibility of M. tuberculosis infection or tuberculosis disease: false negative results can be due to incorrect blood sample collection/ improper handling of the specimen, stage of infection (e.g., specimen obtained prior to the development of cellular immune response), co-morbid conditions which affect immune function, or other individual immunological factors. The minimum number of lymphocytes required for a reliable test has not been established and may also be variable. Diagnostic testing for Mycobacterium tuberculosis using Interferon Gamma Release Assays should follow applicable published guidelines, including when testing in populations such as children, women, and HIV-infected or otherwise immunocompromised individuals. https://www.cdc.gov/tb/publications/guidelines/testing.htm Huan Brambila MD IMMUNOLOGY ORDERABLES Final Re sult [facility] [address] [place] [address], documented in this encounter Visit Diagnoses Diagnosis Down syndrome, unspecified Vitamin D deficiency, unspecified Major depressive disorder, recurrent, mild Major depressive disorder, recurrent episode, mild Severe intellectual disabilities documented in this encounter Care Teams Casino Porter Relationship Specialty Start Date End Date Huan Brambila MD [address] [facility] [place] [address] PCP - General Family Medicine 10/05/21 Huan Brambila MD [address] [place] [address] [place] [address] Family Medicine 10/05/21 Fortunato Rothman MD [address] [address] Consulting Physician Otolaryngology 07/22/25 documented as of this encounter
--- OUTSIDE RECORDS SUMMARY | 2025-08-25 08:52 | XMS_ITS | Encounter Summary ---
Author Organization [facility] Address [address] [facility] [place] [address] Phone Care Team Providers Care Glove Parts Inspector Name Role Phone Huan Brambila MD Primary Care Provider [phone] Huan Brambila MD Unavailable [phone] Fortunato Rothman MD Unavailable [phone] Encounter Details Date Type Department Care Team (Late st Contact Info) Description 03/22/2022 [facility] 1 [facility] [place] [address] Huan Brambila MD 4 [facility] [address] [place] [address] Encounter for screening for COVID-19 [...] Description 02/10/2026 11:30 AM CDT Office Visit [facility] Medical Group - Ear, Nose & Throat - [place] #[address] [place] [address] Fortunato Rothman MD #[address] [place] [address] [address] documented as of this encounter Procedures Procedure Name Priority Date/Time Associated Diagnosis Comments SARS-COV-2 BY MOLECULAR Routine 03/22/2022 6:53 AM CDT Encounter for screening for COVID-19 documented in this encounter Results * SARS-COV-2 BY MOLECULAR (03/22/2022 6:53 AM CDT) SARSCOV2 NOT DETECTED (Referen ce Range for this test is Not Detected ) [facility] THERMOFISHER FAST DX 03/23/2022 9:48 AM CDT [facility] Comment:This test was perfor med by a RT-PCR method. Other Non-Phlebotomy Collection / Unknown 03/22/2022 6:53 AM CDT 03/22/2022 2:27 PM CDT Narrative [facility] - 03/23/2022 9:48 AM CDT Authorized Fact Sheets about this test for providers and patients are available at: https://www.fda.gov/medical-devices/hqdrxfvut-wcujttdeqr-oaofxcl-devices/emergen cy-us e-authorizations us Huan Brambila MD MICROBIOLOGY - GENERAL ORDERAB LES Final Result [facility] [address] [place] [address], documented in this encounter Visit Diagnoses Diagnosis Encounter for screening for COVID-19 documented in this encounter Additional Health Concerns Infection Onset Date Last Indicated Resolved Time COVID - 19 03/01/2022 10/04/2022 10/14/2022 12:1 6 AM SMART GRID ENGINEER COVID - 19 11/22/2022 02/07/2023 02/17/2023 12:1 6 AM CDT documented as of this encounter Care Teams Glove Parts Inspector Relationship Specialty Start Date End Date Huan Brambila MD [address] [facility] [address] [place] [address] PCP - General Family Medicine 10/05/21 Huan Brambila MD [address] [facility] [address] [place] [address] Family Medicine 10/05/21 Fortunato Rothman MD #[address] [place] [address] [place] [address] Consulting Physician Otolaryngology 07/22/25 documented as of this encounter
--- OUTSIDE RECORDS SUMMARY | 2025-08-25 08:53 | XMS_ITS | Encounter Summary ---
Author Organization [facility] Address [address] [place] [address] [facility] [place] [address] Phone Care Team Providers Care Metal Casket Maker Name Role Phone Huan Brambila MD Primary Care Provider Huan Brambila MD Primary Care Provider Huan Brambila MD Unavailable [phone] Fortunato Rothman MD Unavailable [phone] Encounter Details Date Type Department Care Team (Late st Contact Info) Description 08/31/2021 [facility] [address] [place] [address] Huan Brambila MD [address] [place] [address] [address] [place] [address] Social History Tobacco Use Types Packs/Day Years [...] Description 02/10/2026 11:30 AM CDT Office Visit [facility] Medical Group - Ear, Nose & Throat - [place] #[address] [place] [address] Fortunato Rothman MD #[address] [place] [address] [address] documented as of this encounter Procedures Procedure Name Priority Date/Time Associated Diagnosis Comments SARS-COV-2 BY MOLECULAR Routine 08/31/2021 7:06 AM CDT documented in this encounter Results * SARS-COV-2 BY MOLECULAR (08/31/2021 7:06 AM CDT) SARSCOV2 NOT DETECTED (Referen ce Range for this test is Not Detected ) [facility] THERMOFISHER FAST DX 09/01/2021 6:22 AM CDT [facility] Comment:This test was perfor med by a RT-PCR method. Other Non-Phlebotomy Collection / Unknown 08/31/2021 7:06 AM CDT 08/31/2021 10:20 AM CDT Narrative [facility] - 09/01/2021 6:22 AM CDT Authorized Fact Sheets about this test for providers and patients are available at: https://www.fda.gov/medical-devices/fteejuzcd-oeqlkgjvxj-mvpuqpv-devices/emergen -us e-authorizations us Huan Brambila MD MICROBIOLOGY - GENERAL ORDERAB LES Final Result [facility] [address] [place] [address], documented in this encounter Visit Diagnoses Not on filedocumented in this encounter Additional Health Concerns Infection Onset Date Last Indicated Resolved Time COVID - 19 08/17/2021 10/26/2021 11/01/2021 12:1 6 AM DRAMATIC TEACHER COVID - 19 10/05/2021 11/02/2021 11/03/2021 5:59 PM DRAMATIC TEACHER COVID - 19 Confirmed 11/02/2021 11/02/202111/22/ 021 12:16 AM DRAMATIC TEACHER COVID - 19 11/30/2021 12/07/2021 12/20/2021 12:1 7 AM DRAMATIC TEACHER COVID - 19 12/07/2021 12/07/2021 12/09/2021 10:5 3 AM DRAMATIC TEACHER COVID - 19 Confirmed 12/07/2021 12/07/2021 022 12:17 AM DRAMATIC TEACHER COVID - 19 03/01/2022 10/04/2022 10/14/2022 12:1 6 AM DRAMATIC TEACHER COVID - 19 11/22/2022 02/07/2023 02/17/2023 12:1 6 AM CDT documented as of this encounter Care Teams Metal Casket Maker Relationship Specialty Start Date End Date Huan Brambila MD [address] [facility] [place] [address] PCP - General Family Medicine 08/25/19 10/04/21 Huan Brambila MD [address] [facility] [place] [address] PCP - General Family Medicine 10/05/21 Huan Brambila MD [address] [facility] [place] [address] Family Medicine 10/05/21 Fortunato Rothman MD #[address] [place] [address] [place] [address] Consulting Physician Otolaryngology 07/22/25 documented as of this encounter
--- OUTSIDE RECORDS SUMMARY | 2025-08-25 08:53 | XMS_ITS | Encounter Summary ---
Author Organization [facility] Address [address] [facility] [place] [address] Phone Care Team Providers Care Compensation And Benefits Analyst Name Role Phone Huan Brambila MD Primary Care Provider [phone] Huan Brambila MD Unavailable [phone] Fortunato Rothman MD Unavailable [phone] Encounter Details Date Type Department Care Team (Late st Contact Info) Description 11/02/2021 [facility] [address] [place] [address] Huan Brambila MD 4 [facility] [address] [place] [address] Encounter for screening for COVID-19 Social History Tobacco Use Types Packs/Day Years Used Date Smoking Tobacco: Never Assessed Sex and Gender Information Value Date Recorded Sex Assigned at Not on file Legal Sex Male 11:39 PM CDT Gender Identity Not on file Sexual Orientation Not on file documented as of this encounter Plan of Treatment Upcoming Encounters Date Type Department Care Team (Late st Contact Info) Description 02/10/2026 11:30 AM CDT Office Visit [facility] - Ear, Nose & Throat - [place] [address] [place] [address] Fortunato Rothman MD [address] [address] documented as of this encounter Procedures Procedure Name Priority Date/Time Associated Diagnosis Comments SARS-COV-2 BY MOLECULAR Routine 11/02/2021 7:20 AM FERRY ENGINEER Encounter for screening for COVID-19 documented in this encounter Results * (ABNORMAL) SARS-COV-2 BY MOLECULAR (11/02/2021 7:20 AM FERRY ENGINEER) SARSCOV2 DETECTED( A) (Referenc e Range for this test is Not Detected) [facility] THERMOFISHER FAST DX 11/03/2021 5:59 PM FERRY ENGINEER [facility] Comment:This test was perfor med by a RT-PCR method. Other No Phlebotomy Charged / Unknown 11/02/2021 7:20 AM FERRY ENGINEER 11/02/2021 10:59 AM FERRY ENGINEER Narrative [facility] - 11/03/2021 5:59 PM FERRY ENGINEER Authorized Fact Sheets about this test for providers and patients are available at: https://www.fda.gov/medical-devices/sqytxweqm-oduuwmrusu-vjgsonm-devices/emergen -us e-authorizations us Huan Brambila MD MICROBIOLOGY - GENERAL ORDERAB LES Final Result [facility] [address] [place] [address], documented in this encounter Visit Diagnoses Diagnosis Encounter for screening for COVID-19 documented in this encounter Additional Health Concerns Infection Onset Date Last Indicated Resolved Time COVID - 19 10/05/2021 11/02/2021 11/03/2021 5:59 PM FERRY ENGINEER COVID - 19 Confirmed 11/02/2021 11/02/2021 021 12:16 AM FERRY ENGINEER COVID - 19 11/30/2021 12/07/2021 12/20/2021 12:1 7 AM FERRY ENGINEER COVID - 19 12/07/2021 12/07/2021 12/09/2021 10:5 3 AM FERRY ENGINEER COVID - 19 Confirmed 12/07/2021 12/07/2021 022 12:17 AM FERRY ENGINEER COVID - 19 03/01/2022 10/04/2022 10/14/2022 12:1 6 AM FERRY ENGINEER COVID - 19 11/22/2022 02/07/2023 02/17/2023 12:1 6 AM CDT documented as of this encounter Care Teams Compensation And Benefits Analyst Relationship Specialty Start Date End Date Huan Brambila MD [address] [facility] [place] [address] PCP - General Family Medicine 10/05/21 Huan Brambila MD [address] [facility] [place] [address] Family Medicine 10/05/21 Fortunato Rothman MD [address] [address] Consulting Physician Otolaryngology 07/22/25 documented as of this encounter
--- OUTSIDE RECORDS SUMMARY | 2025-08-25 08:53 | XMS_ITS | Encounter Summary ---
Author Organization [facility] Address [address] [facility] [place] [address] Phone Care Team Providers Care Company Miner Blasting Name Role Phone Huan Brambila MD Primary Care Provider Huan Brambila MD Unavailable [phone] Fortunato Rothman MD Unavailable [phone] Encounter Details Date Type Department Care Team (Late st Contact Info) Description 06/21/2022 [facility] 1 [facility] [place] [address] Huan Brambila MD 4 [facility] [address] [place] [address] Encounter for screening for COVID-19 [...] 02/10/2026 11:30 AM CDT Office Visit [facility] Medical Group - Ear, Nose & Throat - [place] [address] [place] [address] Fortunato Rothman MD [address] [address] documented as of this encounter Procedures Procedure Name Priority Date/Time Associated Diagnosis Comments SARS-COV-2 BY MOLECULAR Routine 06/21/2022 7:26 AM CDT Encounter for screening for COVID-19 documented in this encounter Results * SARS-COV-2 BY MOLECULAR (06/21/2022 7:26 AM CDT) SARSCOV2 NOT DETECTED (Referen ce Range for this test is Not Detected ) [facility] THERMOFISHER FAST DX 06/22/2022 12:23 AM CDT [facility] Comment:This test was perfor med by a RT-PCR method. Other Non-Phlebotomy Collection / Unknown 06/21/2022 7:26 AM CDT 06/21/2022 1:58 PM CDT Narrative [facility] - 06/22/2022 12:23 AM CDT Authorized Fact Sheets about this test for providers and patients are available at: https://www.fda.gov/medical-devices/psofykzqc-hvpngynzll-wygires-devices/emergen cy-us e-authorizations us Huan Brambila MD MICROBIOLOGY - GENERAL ORDERAB LES Final Result [facility] [address] [place] [address], documented in this encounter Visit Diagnoses Diagnosis Encounter for screening for COVID-19 documented in this encounter Additional Health Concerns Infection Onset Date Last Indicated Resolved Time COVID - 19 03/01/2022 10/04/2022 10/14/2022 12:1 6 AM HEALTHCARE RISK CONTROL CONSULTANT COVID - 19 11/22/2022 02/07/2023 02/17/2023 12:1 6 AM CDT documented as of this encounter Care Teams Company Miner Blasting Relationship Specialty Start Date End Date Huan Brambila MD [address] [facility] [address] [place] [address] PCP - General Family Medicine 10/05/21 Huan Brambila MD [address] [facility] [address] [place] [address] Family Medicine 10/05/21 Fortunato Rothman MD [address] [place] [address] Consulting Physician Otolaryngology 07/22/25 documented as of this encounter
--- OUTSIDE RECORDS SUMMARY | 2025-08-25 08:53 | XMS_ITS | Encounter Summary ---
Author Organization [facility] Address [address] [place] [address] [facility] [place] [address] Phone Care Team Providers Care Neonatal Icu Coordinator Name Role Phone Huan Brambila MD Primary Care Provider [phone] Huan Brambila MD Unavailable [phone] Fortunato Rothman MD Unavailable [phone] Encounter Details Date Type Department Care Team (Late st Contact Info) Description 06/14/2022 [facility] 1 [facility] [place] [address] Huan Brambila MD 4 [facility] [address] [place] [address] Encounter for screening for COVID-19 [...] Description 02/10/2026 11:30 AM CDT Office Visit [facility] - Ear, Nose & Throat - [place] [address] [place] [address] Fortunato Rothman MD [address] [address] documented as of this encounter Procedures Procedure Name Priority Date/Time Associated Diagnosis Comments SARS-COV-2 BY MOLECULAR Routine 06/14/2022 6:59 AM CDT Encounter for screening for COVID-19 documented in this encounter Results * SARS-COV-2 BY MOLECULAR (06/14/2022 6:59 AM CDT) SARSCOV2 NOT DETECTED (Referen ce Range for this test is Not Detected ) [facility] THERMOFISHER FAST DX 06/15/2022 7:36 AM CDT [facility] Comment:This test was perfor med by a RT-PCR method. Other Non-Phlebotomy Collection / Unknown 06/14/2022 6:59 AM CDT 06/14/2022 11:34 AM CDT Narrative [facility] - 06/15/2022 7:36 AM CDT Authorized Fact Sheets about this test for providers and patients are available at: https://www.fda.gov/medical-devices/numqbffci-afzgofyqrn-xsyiuww-devices/emergen cy-us e-authorizations us Huan Brambila MD MICROBIOLOGY - GENERAL ORDERAB LES Final Result [facility] [address] [place] [address], documented in this encounter Visit Diagnoses Diagnosis Encounter for screening for COVID-19 documented in this encounter Additional Health Concerns Infection Onset Date Last Indicated Resolved Time COVID - 19 03/01/2022 10/04/2022 10/14/2022 12:1 6 AM PEARL MAKER COVID - 19 11/22/2022 02/07/2023 02/17/2023 12:1 6 AM CDT documented as of this encounter Care Teams Neonatal Icu Coordinator Relationship Specialty Start Date End Date Huan Brambila MD 4 [facility] [address] [place] [address] PCP - General Family Medicine 10/05/21 Huan Brambila MD 4 [facility] [address] [place] [address] Family Medicine 10/05/21 Fortunato Rothman MD [address] [place] [address] Consulting Physician Otolaryngology 07/22/25 documented as of this encounter
--- OUTSIDE RECORDS SUMMARY | 2025-08-25 08:53 | XMS_ITS | Clinical Summary ---
Author Organization [facility] Address [address] [place] [address] Care Team Providers Care Plant Associate Name Role Phone Huan Brambila MD Primary Care Provider [phone] Huan Brambila MD Unavailable [phone] Fortunato Rothman MD Unavailable [phone] Allergies Active Allergy Reactions Criticality Noted Date Comments Amoxicillin-Pot Clavulanate Unknown 08/25/20 19 Tuberculin Ppd Unknown 08/25/2019 Medications loratadine (CLARITIN) 10 MG Tablet Take 10 mg by mouth daily. Active vitamin D (CHOLECALCIFERO L) 1000 UNIT Tablet Take 1,000 Units by mouth daily. Active diphenhydrAMINE (BENADRYL ALLERGY) 25 MG CapsuleIndicati ons:Facial swelling Take 1 Cap by mouth every 6 hours as needed for Itching. 100 Cap 9 Active Dextran 70-Hypromellose (ARTIFICIAL TEARS) 0.1-0.3 % SolutionIndicat ions:Facial swelling Place 1 Drop in affected eye(s) 3 times daily as needed for Other. 1 Bottle 9 Active ciprofloxacin-d examethasone (CIPRODEX) 0.3-0.1 % SuspensionIndic ations:Otorrhea of left ear Place 4 Drops in left ear every 12 hours for 7 days. 7.5 mL 5 08/05/20 25 Active Problems No known active problems Encounters Date Type Department Care Team Description 08/12/2025 11:15 AM CDT Office Visit [facility] & Th[facility]at [facility] #[address] [place] [address] Fortunato Rothman MD Otorrhea of left ear (Primary Dx) Discharge Disposition: Discharged to home or Selfcare 08/12/2025 Travel 07/29/2025 10:45 AM CDT Office Visit [facility] N[facility] Throat [facility] #2 [facility] [place] [address] Fortunato Rothman MD Impacted cerumen of both ears (Primary Dx); Otorrhea of left ear Discharge Disposition: Discharged to home or Selfcare 07/29/2025 Travel 07/01/2025 Lab Requisition [facility] Laboratory Services [address] [place] [address] Huan Brambila MD Down syndrome, unspecified; Vitamin D deficiency, unspecified; Major depressive disorder, recurrent, mild (HCC); Severe intellectual disabilities from Last 3 Months Immunizations Immunization Administration Dates Next Due Covid-19, Mrna, Lnp-s, Pf, 30 Mcg/0.3 Ml Dose (P fizer) 09/30/2021 Social History Tobacco Use Types Packs/Day Years Used Date Smoking Tobacco: Never Smokeless Tobacco: Never Sex and Gender Information Value Date Recorded Sex Assigned at Not on file Legal Sex Male 11:39 PM CDT Gender Identity Not on file Sexual Orientation Not on file Last Filed Vital Signs Vital Sign Reading Time Taken Comments Blood Pressure 110/80 08/12/2025 11:34 AM CDT Pulse 60 08/12/2025 11:34 AM CDT Temperature 37.2 C (98.9 F) 08/25/2019 10:58 AM CDT Respiratory Rate 20 08/12/2025 11:34 AM CDT Oxygen Saturation 96% 08/12/2025 11:34 AM CDT Inhaled Oxygen Concentration - - Weight 77.1 kg (170 lb) 08/12/2025 11:34 AM CDT Height 160 cm (5' 3) 08/12/2025 11:34 AM CDT Body Mass Index 30.11 08/12/2025 11:34 AM CDT Plan of Treatment Upcoming Encounters Date Type Department Care Team (Late st Contact Info) Description 02/10/2026 11:30 AM CDT Office Visit [facility] - [facility] & Th[facility]at - [place] [address] [place] [id number] Fortunato Rothman MD [address] [place] [place] [address] [phone] Health Maintenance Due Date Last Done Comments Hepatitis C Virus (HCV) Screening 1980 TdaP Immunization 1980 Hepatitis B Immunization (1 of 3 - 19+ 3-dose series) 1999 Human Papillomavirus (HPV) Immunization (1 - 3-dose SCDM series) 2007 Cologuard 2025 Colonoscopy 2025 Colorectal Cancer Screening 2025 Immunochemical Fecal Occult Blood 2025 Influenza Immunization (#1) 2025 SARS-COV-2 Immunization ( season) 2025 09/30/2021, 01/28/2021, 01/07/2021 Respiratory Syncytial Virus (RSV) Immunization (Adult) (1 - 1-dose 75+ series) 2055 Meningococcal Immunization (ACWY) Aged Out No longer eligible b ased on patient's age to complete this topic Pneumococcal Immunization Combined Aged Out No longer eligible b ased on patient's age to complete this topic Rotavirus Immunization Aged Out No lo nger eligible based on patient's age to complete this topic Procedures Procedure Name Priority Date/Time Associated Diagnosis Comments REMOVE IMPACTED EAR WAX VIA INSTRUMENT BILAT Routine 07/29/2025 10:45 AM CDT Impacted cerumen of both ears Otorrhea of left ear QUANTIFERON-TB GOLD PLUS Routine 07/01/2025 7:03 AM CDT Down syndrome, unspecified Vitamin D deficiency, unspecified Major depressive disorder, recurrent, mild (HCC) Severe intellectual disabilities from Last 3 Months Results * REMOVE IMPACTED EAR WAX VIA INSTRUMENT BILAT (07/29/2025 10:45 AM CDT) Fortunato Gregg MD - 07/29/2025 10:45 AM CDT Fortunato Rothman MD 07/29/2025 11:19 AM PROCEDURE PERFORMED: Removal of bilateral Impacted Cerumen Risks, benefits and alternatives were discussed with the patient. Specific risks include irritation of the canal, bleeding, infection or need for additional procedures. Benefits include improvement of ear canal obstruction, and alternative includes observation or [id number] remedies at home if they are candidate. After obtaining informed consent, the patient was placed in a semi-reclining position in the exam chair. The operative otoscope was used to visualize the both ear canals . Impacted/obstructing cerumen was noted in both sides . Cerumen removal was accomplished using suction The left tympanic membrane was visualized and noted to be intact and normal but there was pus in the ear canal The right tympanic membrane was visualized and noted to be intact and normal. The patient tolerated this well without complications. Fortunato Rothman MD PROCEDURE/MINOR SURGICAL ORDERA BLES Final Result * QUANTIFERON-TB GOLD PLUS (07/01/2025 7:03 AM CDT) NIL CONTROL 0.01 <8.01 IU/mL 07/03/2025 9:46 AM CDT [facility] TB ANTIGEN 1 0.02 <0.35 IU/mL 07/03/2025 9:46 AM CDT [facility] TB ANTIGEN 2 0.02 <0.35 IU/mL 07/03/2025 9:46 AM CDT [facility] MITOGEN CONTROL 9.99 >0.49 IU/mL 07/03/20 9:46 AM CDT [facility] INTEPRETATION TB NEGATIVE NEGATIVE, NEGATIVE (TB antigen response less than 25% of internal negative control value) 07/03/2025 9:46 AM CDT [facility] Comment:No immune response t o Mycobacterium tuberculosis antigens was noted. M. tuberculosis infection unlikely. Blood Venipuncture / Unknown 07/01/2025 7:03 AM CDT 07/01/2025 9:10 AM CDT Narrative [facility] - 07/03/2025 9:46 AM CDT A POSITIVE [...] and HIV-infected or otherwise immunocompromised individuals. https://www.cdc.gov/tb/publications/guidelines/testing.htm us Huan Brambila MD IMMUNOLOGY ORDERABLES Final Re sult [facility] [address] [place] [address], [place] from Last 3 Months Insurance [place] Care Teams Plant Associate Relationship Specialty Start Date End Date Huan Brambila MD [address] [facility] [place] [address] PCP - General Family Medicine 10/05/21 Huan Brambila MD [address] [facility] [place] [address] Family Medicine 10/05/21 Fortunato Rothman MD [address] [place] [address] Consulting Physician Otolaryngology 07/22/25
--- OUTSIDE RECORDS SUMMARY | 2025-08-25 08:53 | XMS_ITS | Encounter Summary ---
Author Organization [facility] Address [address] [facility] [place] [address] Phone Care Team Providers Care Intern Architect Name Role Phone Huan Brambila MD Primary Care Provider Huan Brambila MD Unavailable [phone] Fortunato Rohtman MD Unavailable [phone] Encounter Details Date Type Department Care Team (Late st Contact Info) Description 12/13/2022 [facility] [address] [place] [address] Huan Brambila MD 4 [facility] [address] [place] [address] Encounter for screening for COVID-19 [...] 02/10/2026 11:30 AM CDT Office Visit [facility] Medical Group - Ear, Nose & Throat - [place] [address] [place] [address] Fortunato Rothman MD [address] [phone] documented as of this encounter Procedures Procedure Name Priority Date/Time Associated Diagnosis Comments SARS-COV-2 BY MOLECULAR Routine 12/13/2022 7:06 AM SHACTOR HELPER Encounter for screening for COVID-19 documented in this encounter Results * SARS-COV-2 BY MOLECULAR (12/13/2022 7:06 AM SHACTOR HELPER) SARSCOV2 NOT DETECTED (Referen ce Range for this test is Not Detected ) [facility] THERMOFISHER FAST DX 12/13/2022 10:41 PM SHACTOR HELPER [facility] Comment:This test was perfor med by a RT-PCR method. Other Non-Phlebotomy Collection / Unknown 12/13/2022 7:06 AM SHACTOR HELPER 12/13/2022 10:31 AM SHACTOR HELPER Narrative [facility] - 12/13/2022 10:41 PM SHACTOR HELPER Authorized Fact Sheets about this test for providers and patients are available at: https://www.fda.gov/medical-devices/yhdjfaztl-yueafejkqs-dldguuk-devices/emergen -us e-authorizations Result [facility] Huan Brambila MD MICROBIOLOGY - GENERAL ORDERAB LES Final Result Performing Organization Address City/State/[facility] Co de Phone Number [facility] [address] [place] [address], documented in this encounter Visit Diagnoses Diagnosis Encounter for screening for COVID-19 documented in this encounter Additional Health Concerns Infection Onset Date Last Indicated Resolved Time COVID - 19 11/22/2022 02/07/2023 02/17/2023 12:1 6 AM CDT documented as of this encounter Care Teams Intern Architect Relationship Specialty Start Date End Date Huan Brambila MD [address] [place] [address] [place] [address] PCP - General Family Medicine 10/05/21 Huan Brambila MD [address] [place] [address] [place] [address] Family Medicine 10/05/21 Fortunato Rothman MD [address] [address] Consulting Physician Otolaryngology 07/22/25 documented as of this encounter
--- OUTSIDE RECORDS SUMMARY | 2025-08-25 08:53 | XMS_ITS | Encounter Summary ---
Author Organization [facility] Address [address] [place] [facility] [place] [address] Phone Care Team Providers Care Trap Operator Name Role Phone Huan Brambila MD Primary Care Provider Huan Brambila MD Unavailable [phone] Fortunato Rothman MD Unavailable [phone] Encounter Details Date Type Department Care Team (Late st Contact Info) Description 08/30/2022 [facility] 1 [facility] [place] [address] Huan Brambila MD 4 [facility] [address] [place] [address] Encounter for screening for COVID-19 [...] 11:30 AM CDT Office Visit [facility] Medical Group - Ear, Nose & Throat - [place] #[address] [place] [address] Fortunato Rothman MD #[address] [address] documented as of this encounter Procedures Procedure Name Priority Date/Time Associated Diagnosis Comments SARS-COV-2 BY MOLECULAR Routine 08/30/2022 7:15 AM CDT Encounter for screening for COVID-19 documented in this encounter Results * SARS-COV-2 BY MOLECULAR (08/30/2022 7:15 AM CDT) SARSCOV2 NOT DETECTED (Referen ce Range for this test is Not Detected ) [facility] THERMOFISHER FAST DX 08/31/2022 5:43 AM CDT [facility] Comment:This test was perfor med by a RT-PCR method. Other Non-Phlebotomy Collection / Unknown 08/30/2022 7:15 AM CDT 08/30/2022 2:51 PM CDT Narrative [facility] - 08/31/2022 5:43 AM CDT Authorized Fact Sheets about this test for providers and patients are available at: https://www.fda.gov/medical-devices/izlkiydfg-azeoluxxls-nxrwwpk-devices/emergen cy-us e-authorizations us Huan Brambila MD MICROBIOLOGY - GENERAL ORDERAB LES Final Result [facility] [address] [place] [address], documented in this encounter Visit Diagnoses Diagnosis Encounter for screening for COVID-19 documented in this encounter Additional Health Concerns Infection Onset Date Last Indicated Resolved Time COVID - 19 03/01/2022 10/04/2022 10/14/2022 12:1 6 AM GAMING DIRECTOR COVID - 19 11/22/2022 02/07/2023 02/17/2023 12:1 6 AM CDT documented as of this encounter Care Teams Trap Operator Relationship Specialty Start Date End Date Huan Brambila MD [address] [facility] [address] [place] [address] PCP - General Family Medicine 10/05/21 Huan Brambila MD [address] [facility] [address] [place] [address] Family Medicine 10/05/21 Fortunato Rothman MD [address] [place] [address] [place] [address] Consulting Physician Otolaryngology 07/22/25 documented as of this encounter
--- OUTSIDE RECORDS SUMMARY | 2025-08-25 08:53 | XMS_ITS | Encounter Summary ---
Author Organization [facility] Address [address] [place] [address] [facility] [place] [address] Phone Care Team Providers Care Equipment Associate Name Role Phone Huan Brambila MD Primary Care Provider Huan Brambila MD Unavailable [phone] Fortunato Rothman MD Unavailable [phone] Encounter Details Date Type Department Care Team (Late st Contact Info) Description 12/27/2022 [facility] 1 [facility] [place] [address] Huan Brambila MD 4 [facility] EDUIN [address] [place] [address] Encounter for screening for COVID-19 [...] Group - Ear, Nose & Throat - [place] #[address] [place] [address] Fortunato Rothman MD #[address] [place] [address] [address] [phone] documented as of this encounter Procedures Procedure Name Priority Date/Time Associated Diagnosis Comments SARS-COV-2 BY MOLECULAR Routine 12/27/2022 7:14 AM REGISTERED NURSE NURSERY Encounter for screening for COVID-19 documented in this encounter Results * SARS-COV-2 BY MOLECULAR (12/27/2022 7:14 AM REGISTERED NURSE NURSERY) SARSCOV2 NOT DETECTED (Referen ce Range for this test is Not Detected ) [facility] THERMOFISHER FAST DX 12/27/2022 9:47 PM REGISTERED NURSE NURSERY [facility] Comment:This test was perfor med by a RT-PCR method. Other Non-Phlebotomy Collection / Unknown 12/27/2022 7:14 AM REGISTERED NURSE NURSERY 12/27/2022 10:39 AM REGISTERED NURSE NURSERY Narrative [facility] - 12/27/2022 9:47 PM REGISTERED NURSE NURSERY Authorized Fact Sheets about this test for providers and patients are available at: https://www.fda.gov/medical-devices/fawptqgjk-pycbjduyjr-xsjofsm-devices/emergen -us e-authorizations Result [facility] Huan Brambila MD MICROBIOLOGY - GENERAL ORDERAB LES Final Result Performing Organization Address City/State/[facility] Co de Phone Number [facility] [address] [place] [address], documented in this encounter Visit Diagnoses Diagnosis Encounter for screening for COVID-19 documented in this encounter Additional Health Concerns Infection Onset Date Last Indicated Resolved Time COVID - 19 11/22/2022 02/07/2023 02/17/2023 12:1 6 AM CDT documented as of this encounter Care Teams Equipment Associate Relationship Specialty Start Date End Date Huan Brambila MD [address] [place] [address] [place] [address] PCP - General Family Medicine 10/05/21 Huan Brambila MD [address] [place] [address] [place] [address] Family Medicine 10/05/21 Fortunato Rothman MD [address] [place] [address] [address] Consulting Physician Otolaryngology 07/22/25 documented as of this encounter
--- OUTSIDE RECORDS SUMMARY | 2025-08-25 08:53 | XMS_ITS | Encounter Summary ---
Author Organization [facility] Address [address] [place] [address] [facility] [place] [address] Phone Care Team Providers Care Tax Assessor Name Role Phone Huan Brambila MD Primary Care Provider [phone] Huan Brambila MD Unavailable [phone] Fortunato Rothman MD Unavailable [phone] Encounter Details Date Type Department Care Team (Late st Contact Info) Description 05/10/2022 [facility] 1 [facility] [place] [address] Huan Brambila MD 4 [facility] [address]IN [address] [place] [address] Encounter for screening for COVID-19 [...] Group - Ear, Nose & Throat - [place] #[address] [place] [address] Fortunato Rothman MD #[address] [place] [address] [address] documented as of this encounter Procedures Procedure Name Priority Date/Time Associated Diagnosis Comments SARS-COV-2 BY MOLECULAR Routine 05/10/2022 7:10 AM CDT Encounter for screening for COVID-19 documented in this encounter Results * SARS-COV-2 BY MOLECULAR (05/10/2022 7:10 AM CDT) SARSCOV2 NOT DETECTED (Referenc e Range for this test is Not Detected) [facility] DIASORIN LIAISON MDX [id number] 05/11/2022 6:47 PM CDT [facility] Comment:This test was perfor med by a RT-PCR method. Other Non-Phlebotomy Collection / Unknown 05/10/2022 7:10 AM CDT 05/10/2022 9:52 AM CDT Narrative [facility] - 05/11/2022 6:47 PM CDT Authorized Fact Sheets about this test for providers and patients are available at: https://www.fda.gov/medical-devices/bqsunxnxw-cicpgxgywe-mrpxkko-devices/emergen -us e-authorizations us Huan Brambila MD MICROBIOLOGY - GENERAL ORDERAB LES Final Result [facility] [address] [place] [address], documented in this encounter Visit Diagnoses Diagnosis Encounter for screening for COVID-19 documented in this encounter Additional Health Concerns Infection Onset Date Last Indicated Resolved Time COVID - 19 03/01/2022 10/04/2022 10/14/2022 12:1 6 AM SHIRT BANDER COVID - 19 11/22/2022 02/07/2023 02/17/2023 12:1 6 AM CDT documented as of this encounter Care Teams Tax Assessor Relationship Specialty Start Date End Date Huan Brambila MD [address] [facility] [address] [place] [address] PCP - General Family Medicine 11/10/21 Huan Brambila MD [address] [facility] [address] [place] [address] Family Medicine 10/05/21 Fortunato Rothman MD #2 [facility] [address] [place] [address] Consulting Physician Otolaryngology 07/22/25 documented as of this encounter
--- OUTSIDE RECORDS SUMMARY | 2025-08-25 08:53 | XMS_ITS | Encounter Summary ---
Author Organization [facility] Address [address] [place] [facility] [place] [address] Phone Care Team Providers Care Hospital Nurse Name Role Phone Huan Brambila MD Primary Care Provider Huan Brambila MD Primary Care Provider Huan Brambila MD Unavailable [phone] Fortunato Rothman MD Unavailable [phone] Encounter Details Date Type Department Care Team (Late st Contact Info) Description 09/21/2021 [facility] 1 [place] [address] Huan Brambila MD [address] [place] [address] Encounter for screening for other bacterial diseases Social History Tobacco Use Types Packs/Day [...] Group - Ear, Nose & Throat - [place] [address] [place] [address] Fortunato Rothman MD [address] [place] [address] [address] documented as of this encounter Procedures Procedure Name Priority Date/Time Associated Diagnosis Comments SARS-COV-2 BY MOLECULAR Routine 09/21/2021 7:09 AM CDT Encounter for screening for other bacterial diseases documented in this encounter Results * SARS-COV-2 BY MOLECULAR (09/21/2021 7:09 AM CDT) SARSCOV2 NOT DETECTED (Referen ce Range for this test is Not Detected ) [facility] THERMOFISHER FAST DX 09/22/2021 7:12 AM CDT [facility] Comment:This test was perfor med by a RT-PCR method. Other COVID 19 Collection / Unknown 09/21/2021 7:09 AM CDT 09/21/2021 12:09 PM CDT Narrative [facility] - 09/22/2021 7:12 AM CDT Authorized Fact Sheets about this test for providers and patients are available at: https://www.fda.gov/medical-devices/jjrioczwe-rdbanpnddt-ptqggkg-devices/emergen -us e-authorizations Huan Brambila MD MICROBIOLOGY - GENERAL ORDERAB LES Final Result [facility] [address] [place] [address], documented in this encounter Visit Diagnoses Diagnosis Encounter for screening for other bacterial diseases documented in this encounter Additional Health Concerns Infection Onset Date Last Indicated Resolved Time COVID - 19 08/17/2021 10/26/2021 11/01/2021 12:1 6 AM MEDICAL ILLUSTRATOR COVID - 19 10/05/2021 11/02/2021 11/03/2021 5:59 PM MEDICAL ILLUSTRATOR COVID - 19 Confirmed 11/02/2021 11/02/2021 021 12:16 AM MEDICAL ILLUSTRATOR COVID - 19 11/30/2021 12/07/2021 12/20/2021 12:1 7 AM MEDICAL ILLUSTRATOR COVID - 19 12/07/2021 12/07/2021 12/09/2021 10:5 3 AM MEDICAL ILLUSTRATOR COVID - 19 Confirmed 12/07/2021 12/07/2021 022 12:17 AM MEDICAL ILLUSTRATOR COVID - 19 03/01/2022 10/04/2022 10/14/2022 12:1 6 AM MEDICAL ILLUSTRATOR COVID - 19 11/22/2022 02/07/2023 02/17/2023 12:1 6 AM CDT documented as of this encounter Care Teams Hospital Nurse Relationship Specialty Start Date End Date Huan Brambila MD 4 [facility] [address] PCP - General Family Medicine 08/25/19 10/04/21 Huan Brambila MD 4 [facility] [address] PCP - General Family Medicine 10/05/21 Huan Brambila MD 4 [facility] [address] Family Medicine 10/05/21 Fortunato Rothman MD #[address] [place] [address] [place], [place] [address], [place] [address] Consulting Physician Otolaryngology 07/22/25 documented as of this encounter
--- OUTSIDE RECORDS SUMMARY | 2025-08-25 08:53 | XMS_ITS | Encounter Summary ---
Author Organization [facility] Address [address] [facility] [place] [address] Phone Care Team Providers Care Veterinary Physiologist Name Role Phone Huan Brambila MD Primary Care Provider [phone] Huan Brambila MD Unavailable [phone] Fortunato Rothman MD Unavailable [phone] Encounter Details Date Type Department Care Team (Late st Contact Info) Description 11/29/2022 [facility] 1 [facility] [address] Huan Brambila MD 4 [facility] EDUIN [address] [place] [address] Encounter for screening for COVID-19 [...] 02/10/2026 11:30 AM CDT Office Visit [facility] Medical Group - Ear, Nose & Throat - [place] #[address] [place] [address] Fortunato Rothman MD #[address] [place] [address] [address] [phone] documented as of this encounter Procedures Procedure Name Priority Date/Time Associated Diagnosis Comments SARS-COV-2 BY MOLECULAR Routine 11/29/2022 7:06 AM OSTEOLOGY TEACHER Encounter for screening for COVID-19 documented in this encounter Results * SARS-COV-2 BY MOLECULAR (11/29/2022 7:06 AM OSTEOLOGY TEACHER) SARSCOV2 NOT DETECTED (Referen ce Range for this test is Not Detected ) [facility] THERMOFISHER FAST DX 11/29/2022 9:20 PM OSTEOLOGY TEACHER [facility] Comment:This test was perfor med by a RT-PCR method. Other COVID 19 Collection / Unknown 11/29/2022 7:06 AM OSTEOLOGY TEACHER 11/29/2022 10:05 AM OSTEOLOGY TEACHER Narrative [facility] - 11/29/2022 9:20 PM OSTEOLOGY TEACHER Authorized Fact Sheets about this test for providers and patients are available at: https://www.fda.gov/medical-devices/omqyzrdze-jtomxcqqgf-jbpcijz-devices/emergen -us e-authorizations Result [facility] Huan Brambila MD MICROBIOLOGY - GENERAL ORDERAB LES Final Result [facility] [address] [place] [address], documented in this encounter Visit Diagnoses Diagnosis Encounter for screening for COVID-19 documented in this encounter Additional Health Concerns Infection Onset Date Last Indicated Resolved Time COVID - 19 11/22/2022 02/07/2023 02/17/2023 12:1 6 AM CDT documented as of this encounter Care Teams Veterinary Physiologist Relationship Specialty Start Date End Date Huan Brambila MD [address] [place] [address] [place] [address] PCP - General Family Medicine 10/05/21 Huan Brambila MD [address] [place] [address] [place] [address] Family Medicine 10/05/21 Fortunato Rothman MD [address] [place] [address] [address] Consulting Physician Otolaryngology 07/22/25 documented as of this encounter
--- OUTSIDE RECORDS SUMMARY | 2025-08-25 08:53 | XMS_ITS | Encounter Summary ---
Author Organization [facility] Address [address] [facility] [place] [address] Phone Care Team Providers Care Optical Advisor Name Role Phone Huan Brambila MD Primary Care Provider [phone] Huan Brambila MD Unavailable [phone] Fortunato Rothman MD Unavailable [phone] Encounter Details Date Type Department Care Team (Late st Contact Info) Description 07/19/2022 [facility] 1 [facility] [place] [address] Huan Brambila MD [address] [facility] [address]UIN [address] [place] [address] Encounter for screening for COVID-19 [...] 11:30 AM CDT Office Visit [facility] Medical Group - Ear, Nose & Throat - [place] #[address] [place] [address] Fortunato Rothman MD #[address] [place] [address] [address] [address] documented as of this encounter Procedures Procedure Name Priority Date/Time Associated Diagnosis Comments SARS-COV-2 BY MOLECULAR Routine 07/19/2022 6:47 AM CDT Encounter for screening for COVID-19 documented in this encounter Results * SARS-COV-2 BY MOLECULAR (07/19/2022 6:47 AM CDT) SARSCOV2 NOT DETECTED (Referen ce Range for this test is Not Detected ) [facility] THERMOFISHER FAST DX 07/20/2022 8:46 AM CDT [facility] Comment:This test was perfor med by a RT-PCR method. Other Non-Phlebotomy Collection / Unknown 07/19/2022 6:47 AM CDT 07/19/2022 11:23 AM CDT Narrative [facility] - 07/20/2022 8:46 AM CDT Authorized Fact Sheets about this test for providers and patients are available at: https://www.fda.gov/medical-devices/wyokihimq-hfughqdwac-bfrzcdl-devices/emergen cy-us e-authorizations us Huan Brambila MD MICROBIOLOGY - GENERAL ORDERAB LES Final Result [facility] [address] [place] [address], documented in this encounter Visit Diagnoses Diagnosis Encounter for screening for COVID-19 documented in this encounter Additional Health Concerns Infection Onset Date Last Indicated Resolved Time COVID - 19 03/01/2022 10/04/2022 10/14/2022 12:1 6 AM TELEMETRY NURSE COVID - 19 11/22/2022 02/07/2023 02/17/2023 12:1 6 AM CDT documented as of this encounter Care Teams Optical Advisor Relationship Specialty Start Date End Date Huan Brambila MD 4 [facility] [address] [place] [address] PCP - General Family Medicine 10/05/21 Huan Brambila MD 4 [facility] [address] [place] [address] Family Medicine 10/05/21 Fortunato Rothman MD #[address] [place] [address] [place] [address] Consulting Physician Otolaryngology 07/22/25 documented as of this encounter
--- OUTSIDE RECORDS SUMMARY | 2025-08-25 08:53 | XMS_ITS | Encounter Summary ---
Author Organization [facility] Address [address] [facility] [place] [address] Phone Care Team Providers Care Aix Administrator Name Role Phone Huan Brambila MD Primary Care Provider [phone] Huan Brambila MD Unavailable [phone] Fortunato Rothman MD Unavailable [phone] Encounter Details Date Type Department Care Team (Late st Contact Info) Description 10/12/2021 [facility] 1 [facility] [place] [address] Huan Brambila MD 4 [facility] [address] [place] [address] Social History Tobacco Use Types Packs/Day Years [...] Description 02/10/2026 11:30 AM CDT Office Visit [facility] Medical Group - Ear, Nose & Throat - [place] #[address] [place] [address] Fortunato Rothman MD #[address] [place] [address] [address] documented as of this encounter Procedures Procedure Name Priority Date/Time Associated Diagnosis Comments SARS-COV-2 BY MOLECULAR Routine 10/12/2021 7:18 AM SEW ON OPERATOR documented in this encounter Results * SARS-COV-2 BY MOLECULAR (10/12/2021 7:18 AM SEW ON OPERATOR) SARSCOV2 NOT DETECTED (Referen ce Range for this test is Not Detected ) [facility] THERMOFISHER FAST DX 10/13/2021 9:14 AM SEW ON OPERATOR [facility] Comment:This test was perfor med by a RT-PCR method. Other Non-Phlebotomy Collection / Unknown 10/12/2021 7:18 AM SEW ON OPERATOR 10/12/2021 11:36 AM SEW ON OPERATOR Narrative [facility] - 10/13/2021 9:14 AM SEW ON OPERATOR Authorized Fact Sheets about this test for providers and patients are available at: https://www.fda.gov/medical-devices/ndpscnhxy-qezbxmkhna-mjtgqed-devices/emergen cy-us e-authorizations us Huan Brambila MD MICROBIOLOGY - GENERAL ORDERAB LES Final Result Performing Organization Address City/State/[facility] Co de Phone Number [facility] [address] [place] [address], documented in this encounter Visit Diagnoses Not on filedocumented in this encounter Additional Health Concerns Infection Onset Date Last Indicated Resolved Time COVID - 19 08/17/2021 10/26/2021 11/01/2021 12:1 6 AM SEW ON OPERATOR COVID - 19 10/05/2021 11/02/2021 11/03/2021 5:59 PM SEW ON OPERATOR COVID - 19 Confirmed 11/02/2021 11/02/2021 021 12:16 AM SEW ON OPERATOR COVID - 19 11/30/2021 12/07/2021 12/20/2021 12:1 7 AM SEW ON OPERATOR COVID - 19 12/07/2021 12/07/2021 12/09/2021 10:5 3 AM SEW ON OPERATOR COVID - 19 Confirmed 12/07/2021 12/07/2021 022 12:17 AM SEW ON OPERATOR COVID - 19 03/01/2022 10/04/2022 10/14/2022 12:1 6 AM SEW ON OPERATOR COVID - 19 11/22/2022 02/07/2023 02/17/2023 12:1 6 AM CDT documented as of this encounter Care Teams Aix Administrator Relationship Specialty Start Date End Date Huan Brambila MD [address] [facility] [place] [address] PCP - General Family Medicine 10/05/21 Huan Brambila MD [address] [place] [address] [place] [address] Family Medicine 10/05/21 Fortunato Rothman MD #[address] [place] [address] [address] Consulting Physician Otolaryngology 07/22/25 documented as of this encounter
--- OUTSIDE RECORDS SUMMARY | 2025-08-25 08:53 | XMS_ITS | Encounter Summary ---
Author Organization [facility] Address [address] [place] [address] [facility] [place] [address] Phone Care Team Providers Care Plastics Fabricator Name Role Phone Huan Brambila MD Primary Care Provider Huan Brambila MD Unavailable [phone] Fortunato Rothman MD Unavailable [phone] Encounter Details Date Type Department Care Team (Late st Contact Info) Description 05/24/2022 [facility] 1 [facility] [place] [address] Huan Brambila MD 4 [facility] [address] [place] [address] Encounter for screening for COVID-19 [...] Description 02/10/2026 11:30 AM CDT Office Visit [facility] Medical Group - Ear, Nose & Throat - [place] [address] [place] [address] Fortunato Rothman MD #[address] [place] [address] [address] documented as of this encounter Procedures Procedure Name Priority Date/Time Associated Diagnosis Comments SARS-COV-2 BY MOLECULAR Routine 05/24/2022 7:00 AM CDT Encounter for screening for COVID-19 documented in this encounter Results * SARS-COV-2 BY MOLECULAR (05/24/2022 7:00 AM CDT) SARSCOV2 NOT DETECTED (Referen ce Range for this test is Not Detected ) [facility] THERMOFISHER FAST DX 05/24/2022 11:45 PM CDT [facility] Comment:This test was perfor med by a RT-PCR method. Other Non-Phlebotomy Collection / Unknown 05/24/2022 7:00 AM CDT 05/24/2022 10:15 AM CDT Narrative [facility] - 05/24/2022 11:45 PM CDT Authorized Fact Sheets about this test for providers and patients are available at: https://www.fda.gov/medical-devices/xpiplpqdg-izwfxzmbkj-gznoqyq-devices/emergen cy-us e-authorizations us Huan Brambila MD MICROBIOLOGY - GENERAL ORDERAB LES Final Result [facility] [address] [place] [address], documented in this encounter Visit Diagnoses Diagnosis Encounter for screening for COVID-19 documented in this encounter Additional Health Concerns Infection Onset Date Last Indicated Resolved Time COVID - 19 03/01/2022 10/04/2022 10/14/2022 12:1 6 AM 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
--- OUTSIDE RECORDS SUMMARY | 2025-08-25 08:53 | XMS_ITS | Encounter Summary ---
Author Organization [facility] Address [address] [place] [address] Phone Care Team Providers Care Plant Physiology Teacher Name Role Phone Huan Brambila MD Primary Care Provider [phone] Huan Brambila MD Unavailable [phone] Fortunato Rothman MD Unavailable [phone] Encounter Details Date Type Department Care Team (Late st Contact Info) Description 05/17/2022 [facility] 1 [facility] [place] [address] Huan Brambila MD 4 [facility] EDUIN [address] [place] [address] Encounter for screening for COVID-19 [...] Description 02/10/2026 11:30 AM CDT Office Visit [facility] Medical Group - Ear, Nose & Throat - [place] #[address] [place] [address] Fortunato Rothman MD #[address] [place] [address] [address] documented as of this encounter Procedures Procedure Name Priority Date/Time Associated Diagnosis Comments SARS-COV-2 BY MOLECULAR Routine 05/17/2022 6:57 AM CDT Encounter for screening for COVID-19 documented in this encounter Results * SARS-COV-2 BY MOLECULAR (05/17/2022 6:57 AM CDT) SARSCOV2 NOT DETECTED (Referen ce Range for this test is Not Detected ) [facility] THERMOFISHER FAST DX 05/17/2022 10:13 PM CDT [facility] Comment:This test was perfor med by a RT-PCR method. Other Non-Phlebotomy Collection / Unknown 05/17/2022 6:57 AM CDT 05/17/2022 9:34 AM CDT Narrative [facility] - 05/17/2022 10:13 PM CDT Authorized Fact Sheets about this test for providers and patients are available at: https://www.fda.gov/medical-devices/tbjfbevtu-ckffoaqebo-aqbothy-devices/emergen cy-us e-authorizations us Huan Brambila MD MICROBIOLOGY - GENERAL ORDERAB LES Final Result [facility] [address] [place] [address], documented in this encounter Visit Diagnoses Diagnosis Encounter for screening for COVID-19 documented in this encounter Additional Health Concerns Infection Onset Date Last Indicated Resolved Time COVID - 19 03/01/2022 10/04/2022 10/14/2022 12:1 6 AM 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
--- OUTSIDE RECORDS SUMMARY | 2025-08-25 08:53 | XMS_ITS | Encounter Summary ---
Author Organization [facility] Address [address] [facility] [address] Phone Care Team Providers Care Jacquard Loom Carpet Weaver Name Role Phone Huan Brambila MD Primary Care Provider Huan Brambila MD Unavailable [phone] Fortunato Rothman MD Unavailable [phone] Encounter Details Date Type Department Care Team (Late st Contact Info) Description 06/07/2022 [facility] [address] [facility] [place] [address] Huan Brambila MD 4 [facility] [address] [place] [address] Encounter for screening for COVID-19 [...] Description 02/10/2026 11:30 AM CDT Office Visit [facility] - Ear, Nose & Throat - [place] #[address] [place] [address] Fortunato Rothman MD #[address] [place] [address] [address] documented as of this encounter Procedures Procedure Name Priority Date/Time Associated Diagnosis Comments SARS-COV-2 BY MOLECULAR Routine 06/07/2022 6:54 AM CDT Encounter for screening for COVID-19 documented in this encounter Results * SARS-COV-2 BY MOLECULAR (06/07/2022 6:54 AM CDT) SARSCOV2 NOT DETECTED (Referen ce Range for this test is Not Detected ) [facility] THERMOFISHER FAST DX 06/08/2022 10:49 AM CDT [facility] Comment:This test was perfor med by a RT-PCR method. Other Non-Phlebotomy Collection / Unknown 06/07/2022 6:54 AM CDT 06/07/2022 11:13 AM CDT Narrative [facility] - 06/08/2022 10:49 AM CDT Authorized Fact Sheets about this test for providers and patients are available at: https://www.fda.gov/medical-devices/zyuivnnzl-ftascwuznw-oiczywc-devices/emergen cy-us e-authorizations us Huan Brambila MD MICROBIOLOGY - GENERAL ORDERAB LES Final Result [facility] [address] [place] [address], documented in this encounter Visit Diagnoses Diagnosis Encounter for screening for COVID-19 documented in this encounter Additional Health Concerns Infection Onset Date Last Indicated Resolved Time COVID - 19 03/01/2022 10/04/2022 10/14/2022 12:1 6 AM WIRELESS ARCHITECT COVID - 19 11/22/2022 02/07/2023 02/17/2023 12:1 6 AM CDT documented as of this encounter Care Teams Jacquard Loom Carpet Weaver Relationship Specialty Start Date End Date Huan Brambila MD [address] [facility] [address] [place] [address] PCP - General Family Medicine 10/05/21 Huan Brambila MD [address] [facility] [address] [place] [address] Family Medicine 10/05/21 Fortunato Rothman MD #[address] [place] [place] [address] Consulting Physician Otolaryngology 07/22/25 documented as of this encounter
--- OUTSIDE RECORDS SUMMARY | 2025-08-25 08:53 | XMS_ITS | Encounter Summary ---
Author Organization [facility] Address [address] [place] [address] [facility] [place] [place] [address] Phone Care Team Providers Care Cad Drafter Name Role Phone Huan Brambila MD Primary Care Provider Huan Brambila MD Unavailable [phone] Fortunato Rothman MD Unavailable [phone] Encounter Details Date Type Department Care Team (Late st Contact Info) Description 09/27/2022 [facility] 1 [facility] [place] [address] Huan Brambila MD 4 [facility] [address] [place] [address] Encounter for screening for COVID-19 [...] Description 02/10/2026 11:30 AM CDT Office Visit [facility] Medical Group - Ear, Nose & Throat - [place] #[address] [place] [address] Fortuntao Rothman MD #[address] [place] [address] [address] documented as of this encounter Procedures Procedure Name Priority Date/Time Associated Diagnosis Comments SARS-COV-2 BY MOLECULAR Routine 09/27/2022 7:21 AM CDT Encounter for screening for COVID-19 documented in this encounter Results * SARS-COV-2 BY MOLECULAR (09/27/2022 7:21 AM CDT) SARSCOV2 NOT DETECTED (Referen ce Range for this test is Not Detected ) [facility] THERMOFISHER FAST DX 09/28/2022 9:34 AM CDT [facility] Comment:This test was perfor med by a RT-PCR method. Other Non-Phlebotomy Collection / Unknown 09/27/2022 7:21 AM CDT 09/27/2022 12:22 PM CDT Narrative [facility] - 09/28/2022 9:34 AM CDT Authorized Fact Sheets about this test for providers and patients are available at: https://www.fda.gov/medical-devices/wyqqbltaa-clxiarczmw-qvejlyj-devices/emergen cy-us e-authorizations us Huan Brambila MD MICROBIOLOGY - GENERAL ORDERAB LES Final Result [facility] [address] [place] [address], documented in this encounter Visit Diagnoses Diagnosis Encounter for screening for COVID-19 documented in this encounter Additional Health Concerns Infection Onset Date Last Indicated Resolved Time COVID - 19 03/01/2022 10/04/2022 10/14/2022 12:1 6 AM PIGMENT PUMPER COVID - 19 11/22/2022 02/07/2023 02/17/2023 12:1 6 AM CDT documented as of this encounter Care Teams Cad Drafter Relationship Specialty Start Date End Date Huan Brambila MD [address] [facility] [address] [place] [address] PCP - General Family Medicine 10/05/21 Huan Brambila MD [address] [facility] [address] [place] [address] Family Medicine 10/05/21 Fortunato Rothman MD #[address] [place] [address] [place] [address] Consulting Physician Otolaryngology 07/22/25 documented as of this encounter
--- OUTSIDE RECORDS SUMMARY | 2025-08-25 08:53 | XMS_ITS | Encounter Summary ---
Author Organization [facility] Address [address] [place] [address] [place] [address] Phone Care Team Providers Care Jewelry Drill Operator Name Role Phone Huan Brambila MD Primary Care Provider Huan Brambila MD Primary Care Provider [phone] Huan Brambila MD Unavailable [phone] Fortunato Rothman MD Unavailable [phone] Encounter Details Date Type Department Care Team (Late st Contact Info) Description 08/24/2021 [facility] [address] [place] [address] Huan Brambila MD [address] [place] [address] Encounter for screening for COVID-19 Social [...] Group - Ear, Nose & Throat - [place] #[address] [place] [address] Fortunato Rothman MD [address] [place] [address] [address] documented as of this encounter Procedures Procedure Name Priority Date/Time Associated Diagnosis Comments SARS-COV-2 BY MOLECULAR Routine 08/24/2021 7:02 AM CDT Encounter for screening for COVID-19 documented in this encounter Results * SARS-COV-2 BY MOLECULAR (08/24/2021 7:02 AM CDT) SARSCOV2 NOT DETECTED (Referen ce Range for this test is Not Detected ) [facility] THERMOFISHER FAST DX 08/25/2021 5:10 AM CDT [facility] Comment:This test was perfor med by a RT-PCR method. Other No Phlebotomy Charged / Unknown 08/24/2021 7:02 AM CDT 08/24/2021 11:03 AM CDT Narrative [facility] - 08/25/2021 5:10 AM CDT Authorized Fact Sheets about this test for providers and patients are available at: https://www.fda.gov/medical-devices/wqgmzqopu-cluipcfats-ypgfsvg-devices/emergen -us e-authorizations us Huan Brambila MD MICROBIOLOGY - GENERAL ORDERAB LES Final Result [facility] [address] [place] [address], documented in this encounter Visit Diagnoses Diagnosis Encounter for screening for COVID-19 documented in this encounter Additional Health Concerns Infection Onset Date Last Indicated Resolved Time COVID - 19 08/17/2021 10/26/2021 11/01/2021 12:1 6 AM 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 COVID - 19 10/05/2021 11/02/2021 11/03/2021 5:59 PM 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 ADJUSTER COVID - 19 Confirmed 11/02/2021 11/02/202111/22/ 021 12:16 AM 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 ADJUSTER COVID - 19 11/30/2021 12/07/2021 12/20/2021 12:1 7 AM 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 ADJUSTER COVID - 19 12/07/2021 12/07/2021 12/09/2021 10:5 3 AM 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 ADJUSTER COVID - 19 Confirmed 12/07/2021 12/07/2021 022 12:17 AM 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 ADJUSTER COVID - 19 03/01/2022 10/04/2022 10/14/2022 12:1 6 AM 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 ADJUSTER COVID - 19 11/22/2022 02/07/2023 02/17/2023 12:1 6 AM CDT documented as of this encounter Care Teams Jewelry Drill Operator Relationship Specialty Start Date End Date Huan Brambila MD [address] [facility] [place] [address] PCP - General Family Medicine 08/25/19 10/04/21 Huan Brambila MD [address] [place] [address] PCP - General Family Medicine 10/05/21 Huan Brambila MD [address] [place] [place] [address] Family Medicine 10/05/21 Fortunato Rothman MD #[address] [place] [address] Consulting Physician Otolaryngology 07/22/25 documented as of this encounter
--- OUTSIDE RECORDS SUMMARY | 2025-08-25 08:53 | XMS_ITS | Encounter Summary ---
Author Organization [facility] Address [address] [facility] [place] [address] Phone Care Team Providers Care Ocean Forwarder Name Role Phone Huan Brambila MD Primary Care Provider [phone] Huan Brambila MD Unavailable [phone] Fortunato Rothman MD Unavailable [phone] Encounter Details Date Type Department Care Team (Late st Contact Info) Description 09/13/2022 [facility] [address] [facility] [place] [address] Huan Brambila MD 4 [facility] [address] [place] [address] Encounter for screening for COVID-19 [...] Description 02/10/2026 11:30 AM CDT Office Visit [facility] - Ear, Nose & Throat - [place] #[address] [place] [address] Fortunato Rothman MD [address] [place] [address] [address] documented as of this encounter Procedures Procedure Name Priority Date/Time Associated Diagnosis Comments SARS-COV-2 BY MOLECULAR Routine 09/13/2022 7:15 AM CDT Encounter for screening for COVID-19 documented in this encounter Results * SARS-COV-2 BY MOLECULAR (09/13/2022 7:15 AM CDT) SARSCOV2 NOT DETECTED (Referen ce Range for this test is Not Detected ) [facility] THERMOFISHER FAST DX 09/14/2022 12:39 AM CDT [facility] Comment:This test was perfor med by a RT-PCR method. Other Non-Phlebotomy Collection / Unknown 09/13/2022 7:15 AM CDT 09/13/2022 11:13 AM CDT Narrative [facility] - 09/14/2022 12:39 AM CDT Authorized Fact Sheets about this test for providers and patients are available at: https://www.fda.gov/medical-devices/fviskfgfo-dpodewpkrl-tkcpqen-devices/emergen cy-us e-authorizations us Huan Brambila MD MICROBIOLOGY - GENERAL ORDERAB LES Final Result 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
--- OUTSIDE RECORDS SUMMARY | 2025-08-25 08:53 | XMS_ITS | Encounter Summary ---
Author Organization [facility] Address [address] [facility] [place] [address] Phone Care Team Providers Care Card Lacer Name Role Phone Huan Brambila MD Primary Care Provider Huan Brambila MD Primary Care Provider Huan Brambila MD Unavailable [phone] Fortunato Rothman MD Unavailable [phone] Encounter Details Date Type Department Care Team (Late st Contact Info) Description 09/14/[facility] [address] [place] [address] Huan Brambila MD [address] [place] [address] [address] [place] [address] Social History Tobacco Use Types Packs/Day Years [...] Description 02/10/2026 11:30 AM CDT Office Visit [facility] Medical Group - Ear, Nose & Throat - [place] #[address] [place] [address] Fortunato Rothman MD #[address] [place] [address] [address] documented as of this encounter Procedures Procedure Name Priority Date/Time Associated Diagnosis Comments SARS-COV-2 BY MOLECULAR Routine 09/14/2021 7:12 AM CDT documented in this encounter Results * SARS-COV-2 BY MOLECULAR (09/14/2021 7:12 AM CDT) SARSCOV2 NOT DETECTED (Referen ce Range for this test is Not Detected ) [facility] THERMOFISHER FAST DX 09/14/2021 5:44 PM CDT [facility] Comment:This test was perfor med by a RT-PCR method. Other Non-Phlebotomy Collection / Unknown 09/14/2021 7:12 AM CDT 09/14/2021 11:03 AM CDT Narrative [facility] - 09/14/2021 5:44 PM CDT Authorized Fact Sheets about this test for providers and patients are available at: https://www.fda.gov/medical-devices/iyxvqxvxl-lgelpcztpy-embhzqa-devices/emergen -us e-authorizations us Huan Brambila MD MICROBIOLOGY - GENERAL ORDERAB LES Final Result [facility] [address] [place] [address], documented in this encounter Visit Diagnoses Not on filedocumented in this encounter Additional Health Concerns Infection Onset Date Last Indicated Resolved Time COVID - 19 08/17/2021 10/26/2021 11/01/2021 12:1 6 AM SANITATION LABORER COVID - 19 10/05/2021 11/02/2021 11/03/2021 5:59 PM SANITATION LABORER COVID - 19 Confirmed 11/02/2021 11/02/202111/22/ 021 12:16 AM SANITATION LABORER COVID - 19 11/30/2021 12/07/2021 12/20/2021 12:1 7 AM SANITATION LABORER COVID - 19 12/07/2021 12/07/2021 12/09/2021 10:5 3 AM SANITATION LABORER COVID - 19 Confirmed 12/07/2021 12/07/2021 022 12:17 AM SANITATION LABORER COVID - 19 03/01/2022 10/04/2022 10/14/2022 12:1 6 AM SANITATION LABORER COVID - 19 11/22/2022 02/07/2023 02/17/2023 12:1 6 AM CDT documented as of this encounter Care Teams Card Lacer Relationship Specialty Start Date End Date Huan Brambila MD [address] [facility] [place] [address] PCP - General Family Medicine 08/25/19 10/04/21 Huan Brambila MD [address] [facility] [place] [address] PCP - General Family Medicine 10/05/21 Huan Brambila MD [address] [facility] [place] [address] Family Medicine 10/05/21 Fortunato Rothman MD #[address] [place] [address] [address] [place] [address] Consulting Physician Otolaryngology 07/22/25 documented as of this encounter
--- OUTSIDE RECORDS SUMMARY | 2025-08-25 08:53 | XMS_ITS | Encounter Summary ---
Author Organization [facility] Address [address] [facility] [place] [address] Phone Care Team Providers Care Arts Education Teacher Name Role Phone Huan Brambila MD Primary Care Provider Huan Brambila MD Unavailable [phone] Fortunato Rothman MD Unavailable [phone] Encounter Details Date Type Department Care Team (Late st Contact Info) Description 07/12/2022 [facility] 1 [facility] [place] [address] Huan Brambila MD 4 [facility] [address] [place] [address] Encounter for screening for COVID-19 [...] Group - Ear, Nose & Throat - [place] #[address] [place] [address] Fortunato Rothman MD #[address] [place] [address] [id number] documented as of this encounter Procedures Procedure Name Priority Date/Time Associated Diagnosis Comments SARS-COV-2 BY MOLECULAR Routine 07/12/2022 7:04 AM CDT documented in this encounter Results * SARS-COV-2 BY MOLECULAR (07/12/2022 7:04 AM CDT) SARSCOV2 NOT DETECTED (Referen ce Range for this test is Not Detected ) [facility] THERMOFISHER FAST DX 2022 8:15 AM CDT [facility] Comment:This test was perfor med by a RT-PCR method. Other Non-Phlebotomy Collection / Unknown 07/12/2022 7:04 AM CDT 07/12/2022 1:24 PM CDT Narrative [facility] - 2022 8:15 AM CDT Authorized Fact Sheets about this test for providers and patients are available at: https://www.fda.gov/medical-devices/zijoipofe-hjctieionq-aumwpul-devices/emergen -us e-authorizations Huan Brambila MD MICROBIOLOGY - GENERAL ORDERAB LES Final Result [facility] [address] [place] [address], documented in this encounter Visit Diagnoses Diagnosis Encounter for screening for COVID-19 documented in this encounter Additional Health Concerns Infection Onset Date Last Indicated Resolved Time COVID - 19 03/01/2022 10/04/2022 10/14/2022 12:1 6 AM GAS OPERATOR COVID - 19 11/22/2022 02/07/2023 02/17/2023 12:1 6 AM CDT documented as of this encounter Care Teams Arts Education Teacher Relationship Specialty Start Date End Date Huan Brambila MD [address] [place] [address] [place] [address] PCP - General Family Medicine 10/05/21 Huan Brambila MD [address] [facility] [address] [place] [address] Family Medicine 10/05/21 Fortunato Rothman MD [address] [place] [address] Consulting Physician Otolaryngology 07/22/25 documented as of this encounter
--- OUTSIDE RECORDS SUMMARY | 2025-08-25 08:53 | XMS_ITS | Encounter Summary ---
Author Organization [facility] Address [address] [place] [address] [facility] [place] [address] Phone Care Team Providers Care Geological Drafter Name Role Phone Huan Brambila MD Primary Care Provider Huan Brambila MD Unavailable [phone] Fortunato Rothman MD Unavailable [phone] Encounter Details Date Type Department Care Team (Late st Contact Info) Description 11/30/[address] [facility] 1 [facility] [place] [address] Huan Brambila MD [address] [facility] [address] [place] [address] Encounter for screening for COVID-19 [...] Description 02/10/2026 11:30 AM CDT Office Visit [facility] Medical Group - Ear, Nose & Throat - [place] #[address] [place] [address] Fortunato Rothman MD #[address] [place] [address] [address] documented as of this encounter Procedures Procedure Name Priority Date/Time Associated Diagnosis Comments SARS-COV-2 BY MOLECULAR Routine 11/30/2021 7:26 AM TRENCH DIGGING MACHINE OPERATOR Encounter for screening for COVID-19 documented in this encounter Results * SARS-COV-2 BY MOLECULAR (11/30/2021 7:26 AM TRENCH DIGGING MACHINE OPERATOR) SARSCOV2 NOT DETECTED (Referen ce Range for this test is Not Detected ) [facility] THERMOFISHER FAST DX 12/02/2021 7:20 PM TRENCH DIGGING MACHINE OPERATOR [facility] Comment:This test was perfor med by a RT-PCR method. Other Non-Phlebotomy Collection / Unknown 11/30/2021 7:26 AM TRENCH DIGGING MACHINE OPERATOR 11/30/2021 1:00 PM TRENCH DIGGING MACHINE OPERATOR Narrative [facility] - 12/02/2021 7:20 PM TRENCH DIGGING MACHINE OPERATOR Authorized Fact Sheets about this test for providers and patients are available at: https://www.fda.gov/medical-devices/enxohjttb-wfywctvgxu-orqkzkz-devices/emergen -us e-authorizations us Huan Brambila MD MICROBIOLOGY - GENERAL ORDERAB LES Final Result [facility] [address] [place] [id number], documented in this encounter Visit Diagnoses Diagnosis Encounter for screening for COVID-19 documented in this encounter Additional Health Concerns Infection Onset Date Last Indicated Resolved Time COVID - 19 11/30/2021 12/07/2021 12/20/2021 12:1 7 AM TRENCH DIGGING MACHINE OPERATOR COVID - 19 12/07/2021 12/07/2021 12/09/2021 10:5 3 AM TRENCH DIGGING MACHINE OPERATOR COVID - 19 Confirmed 12/07/2021 12/07/2021 022 12:17 AM TRENCH DIGGING MACHINE OPERATOR COVID - 19 03/01/2022 10/04/2022 10/14/2022 12:1 6 AM TRENCH DIGGING MACHINE OPERATOR COVID - 19 11/22/2022 02/07/2023 02/17/2023 12:1 6 AM CDT documented as of this encounter Care Teams Geological Drafter Relationship Specialty Start Date End Date Huan Brambila MD [address] [facility] [address] [place] [address] PCP - General Family Medicine 10/05/21 Huan Brambila MD [address] [facility] [address] [place] [address] Family Medicine 10/05/21 Fortunato Rothman MD [address] [address] Consulting Physician Otolaryngology 07/22/25 documented as of this encounter
--- OUTSIDE RECORDS SUMMARY | 2025-08-25 08:53 | XMS_ITS | Encounter Summary ---
Author Organization [facility] Address [address] [place] [address] Phone Care Team Providers Care Building Construction Foreman Name Role Phone Huan Brambila MD Primary Care Provider Huan Brambila MD Unavailable [phone] Fortunato Rothman MD Unavailable [phone] Encounter Details Date Type Department Care Team (Late st Contact Info) Description 09/06/2022 [facility] 1 [facility] [place] [address] Huan Brambila MD 4 [facility] [address] [place] [address] Encounter for screening for COVID-19 [...] 02/10/2026 11:30 AM CDT Office Visit [facility] - Ear, Nose & Throat - [place] #[address] [place] [address] Fortunato Rothman MD #[address] [place] [address] [address] documented as of this encounter Procedures Procedure Name Priority Date/Time Associated Diagnosis Comments SARS-COV-2 BY MOLECULAR Routine 09/06/2022 7:14 AM CDT Encounter for screening for COVID-19 documented in this encounter Results * SARS-COV-2 BY MOLECULAR (09/06/2022 7:14 AM CDT) SARSCOV2 NOT DETECTED (Referen ce Range for this test is Not Detected ) [facility] TH[facility] FAST DX 09/06/2022 11:18 PM CDT [facility] Comment:This test was perfor med by a RT-PCR method. Other No Phlebotomy Charged / Unknown 09/06/2022 7:14 AM CDT 09/06/2022 11:47 AM CDT Narrative [facility] - 09/06/2022 11:18 PM CDT Authorized Fact Sheets about this test for providers and patients are available at: https://www.fda.gov/medical-devices/vfjdyoawk-yxohsriona-ervvpvn-devices/emergen cy-us e-authorizations us Huan Brambila MD MICROBIOLOGY - GENERAL ORDERAB LES Final Result [facility] [address] [place] [address], documented in this encounter Visit Diagnoses Diagnosis Encounter for screening for COVID-19 documented in this encounter Additional Health Concerns Infection Onset Date Last Indicated Resolved Time COVID - 19 03/01/2022 10/04/2022 10/14/2022 12:1 6 AM COMPUTER REPAIRER COVID - 19 11/22/2022 02/07/2023 02/17/2023 12:1 6 AM CDT documented as of this encounter Care Teams Building Construction Foreman Relationship Specialty Start Date End Date Huan Brambila MD [address] [facility] [address] [place] [address] PCP - General Family Medicine 10/05/21 Huan Brambila MD 4 [facility] [address] [place] [address] Family Medicine 10/05/21 Fortunato Rothman MD #[address] [place] [facility] [address] [place] [address] Consulting Physician Otolaryngology 07/22/25 documented as of this encounter
--- OUTSIDE RECORDS SUMMARY | 2025-08-25 08:53 | XMS_ITS | Encounter Summary ---
Author Organization [facility] Address [address] [facility] [place] [address] Phone Care Team Providers Care Helicopter Crew Chief Name Role Phone Huan Brambila MD Primary Care Provider Huan Brambila MD Unavailable [phone] Fortunato Rothman MD Unavailable [phone] Encounter Details Date Type Department Care Team (Late st Contact Info) Description 12/21/2022 [facility] 1 [facility] [place] [address] Huan Brambila MD 4 [facility] EDUIN [address] [place] [address] Encounter for screening for COVID-19 [...] Group - Ear, Nose & Throat - [place] #[address] [place] [address] Fortunato Rothman MD #2 [place] [address] [phone] documented as of this encounter Procedures Procedure Name Priority Date/Time Associated Diagnosis Comments SARS-COV-2 BY MOLECULAR Routine 12/21/2022 7:41 AM ADMISSION DISCHARGE RN Encounter for screening for COVID-19 documented in this encounter Results * SARS-COV-2 BY MOLECULAR (12/21/2022 7:41 AM ADMISSION DISCHARGE RN) SARSCOV2 NOT DETECTED (Referen ce Range for this test is Not Detected ) [facility] THERMOFISHER FAST DX 12/21/2022 5:12 PM ADMISSION DISCHARGE RN [facility] Comment:This test was perfor med by a RT-PCR method. Other Non-Phlebotomy Collection / Unknown 12/21/2022 7:41 AM ADMISSION DISCHARGE RN 12/21/2022 9:38 AM ADMISSION DISCHARGE RN Narrative [facility] - 12/21/2022 5:12 PM ADMISSION DISCHARGE RN Authorized Fact Sheets about this test for providers and patients are available at: https://www.fda.gov/medical-devices/rhblnwsho-bcqpquyaqv-hcxswnu-devices/emergen -us e-authorizations Result [facility] Huan Brambila MD MICROBIOLOGY - GENERAL ORDERAB LES Final Result Performing Organization Address City/State/[facility] Co de Phone Number [facility] [address] [place] [address], documented in this encounter Visit Diagnoses Diagnosis Encounter for screening for COVID-19 documented in this encounter Additional Health Concerns Infection Onset Date Last Indicated Resolved Time COVID - 19 11/22/2022 02/07/2023 02/17/2023 12:1 6 AM CDT documented as of this encounter Care Teams Helicopter Crew Chief Relationship Specialty Start Date End Date Huan Brambila MD [address] [place] [address] [place] [address] PCP - General Family Medicine 10/05/21 Huan Brambila MD [address] [place] [address] [place] [address] Family Medicine 10/05/21 Fortunato Rothman MD #[address] [place] [address] [address] Consulting Physician Otolaryngology 07/22/25 documented as of this encounter
--- OUTSIDE RECORDS SUMMARY | 2025-08-25 08:53 | XMS_ITS | Encounter Summary ---
Author Organization [facility] Address [address] [facility] [place] [address] Phone Care Team Providers Care Traveling Clerk Name Role Phone Huan Brambila MD Primary Care Provider [phone] Huan Brambila MD Unavailable [phone] Fortunato Rothman MD Unavailable [phone] Encounter Details Date Type Department Care Team (Late st Contact Info) Description 10/04/2022 [facility] 1 [facility] [place] [address] Huan Brambila MD 4 [facility] ED[address] [address] [place] [address] Encounter for screening for COVID-19 [...] Description 02/10/2026 11:30 AM CDT Office Visit [facility] Medical Group - Ear, Nose & Throat - [place] #[address] [place] [address] Fortunato Rothman MD #[address] [place] [address] [address] documented as of this encounter Procedures Procedure Name Priority Date/Time Associated Diagnosis Comments SARS-COV-2 BY MOLECULAR Routine 10/04/2022 7:08 AM TIRE BLADDER MAKER Encounter for screening for COVID-19 documented in this encounter Results * SARS-COV-2 BY MOLECULAR (10/04/2022 7:08 AM TIRE BLADDER MAKER) SARSCOV2 NOT DETECTED (Referen ce Range for this test is Not Detected ) [facility] THERMOFISHER FAST DX 10/05/2022 4:42 AM TIRE BLADDER MAKER [facility] Comment:This test was perfor med by a RT-PCR method. Other Non-Phlebotomy Collection / Unknown 10/04/2022 7:08 AM TIRE BLADDER MAKER 10/04/2022 11:38 AM TIRE BLADDER MAKER Narrative [facility] - 10/05/2022 4:42 AM TIRE BLADDER MAKER Authorized Fact Sheets about this test for providers and patients are available at: https://www.fda.gov/medical-devices/coqbpjjec-bcxtsthwpa-udacyxw-devices/emergen -us e-authorizations Huan Brambila MD MICROBIOLOGY - GENERAL ORDERAB LES Final Result [facility] [address] [place] [address], documented in this encounter Visit Diagnoses Diagnosis Encounter for screening for COVID-19 documented in this encounter Additional Health Concerns Infection Onset Date Last Indicated Resolved Time COVID - 19 03/01/2022 10/04/2022 10/14/2022 12:1 6 AM TIRE BLADDER MAKER COVID - 19 11/22/2022 02/07/2023 02/17/2023 12:1 6 AM CDT documented as of this encounter Care Teams Traveling Clerk Relationship Specialty Start Date End Date Huan Brambila MD [address] [place] [address] [place] [address] PCP - General Family Medicine 10/05/21 Huan Brambila MD 4 [facility] [address] [place] [address] Family Medicine 10/05/21 Fortunato Rothman MD #2 [place] [address] [address] Consulting Physician Otolaryngology 07/22/25 documented as of this encounter
--- OUTSIDE RECORDS SUMMARY | 2025-08-25 08:53 | XMS_ITS | Encounter Summary ---
Author Organization [facility] Address [address] [facility] [place] [address] Phone Care Team Providers Care Straight Slicing Machine Operator Name Role Phone Huan Brambila MD Primary Care Provider Huan Brambila MD Unavailable [phone] Fortunato Rothman MD Unavailable [phone] Encounter Details Date Type Department Care Team (Late st Contact Info) Description 10/26/2021 [facility] [address] [place] [address] Huan Brambila MD 4 [facility] [address] [place] [address] Encounter for screening for COVID-19 [...] 02/10/2026 11:30 AM CDT Office Visit [facility] Medical Group - Ear, Nose & Throat - [place] #2 [place] [address] Fortunato Rothman MD #[address] [place] [address] [address] documented as of this encounter Procedures Procedure Name Priority Date/Time Associated Diagnosis Comments SARS-COV-2 BY MOLECULAR Routine 10/26/2021 7:08 AM INORGANIC CHEMISTRY PROFESSOR Encounter for screening for COVID-19 documented in this encounter Results * SARS-COV-2 BY MOLECULAR (10/26/2021 7:08 AM INORGANIC CHEMISTRY PROFESSOR) SARSCOV2 NOT DETECTED (Referen ce Range for this test is Not Detected ) [facility] THERMOFISHER FAST DX 10/27/2021 10:30 AM INORGANIC CHEMISTRY PROFESSOR [facility] Comment:This test was perfor med by a RT-PCR method. Other No Phlebotomy Charged / Unknown 10/26/2021 7:08 AM INORGANIC CHEMISTRY PROFESSOR 10/26/2021 11:01 AM INORGANIC CHEMISTRY PROFESSOR Narrative [facility] - 10/27/2021 10:30 AM INORGANIC CHEMISTRY PROFESSOR Authorized Fact Sheets about this test for providers and patients are available at: https://www.fda.gov/medical-devices/bhjbxvdzi-honqgchaqb-dxqbjsn-devices/emergen cy-us e-authorizations us Huan Brambila MD MICROBIOLOGY - GENERAL ORDERAB LES Final Result [facility] [address] [place] [id number], documented in this encounter Visit Diagnoses Diagnosis Encounter for screening for COVID-19 documented in this encounter Additional Health Concerns Infection Onset Date Last Indicated Resolved Time COVID - 19 08/17/2021 10/26/2021 11/01/2021 12:1 6 AM INORGANIC CHEMISTRY PROFESSOR COVID - 19 10/05/2021 11/02/2021 11/03/2021 5:59 PM INORGANIC CHEMISTRY PROFESSOR COVID - 19 Confirmed 11/02/2021 11/02/2021 021 12:16 AM INORGANIC CHEMISTRY PROFESSOR COVID - 19 11/30/2021 12/07/2021 12/20/2021 12:1 7 AM INORGANIC CHEMISTRY PROFESSOR COVID - 19 12/07/2021 12/07/2021 12/09/2021 10:5 3 AM INORGANIC CHEMISTRY PROFESSOR COVID - 19 Confirmed 12/07/2021 12/07/2021 022 12:17 AM INORGANIC CHEMISTRY PROFESSOR COVID - 19 03/01/2022 10/04/2022 10/14/2022 12:1 6 AM INORGANIC CHEMISTRY PROFESSOR COVID - 19 11/22/2022 02/07/2023 02/17/2023 12:1 6 AM CDT documented as of this encounter Care Teams Straight Slicing Machine Operator Relationship Specialty Start Date End Date Huan Brambila MD 4 [facility] [place] [address] PCP - General Family Medicine 10/05/21 Huan Brambila MD 4 [facility] [place] [address] Family Medicine 10/05/21 Fortunato Rothman MD #[address] [place] [address] [address] Consulting Physician Otolaryngology 07/22/25 documented as of this encounter
--- OUTSIDE RECORDS SUMMARY | 2025-08-25 08:53 | XMS_ITS | Encounter Summary ---
Author Organization [facility] Address [address] [facility] [place] [address] Phone Care Team Providers Care Blood Donor Recruiter Name Role Phone Huan Brambila MD Primary Care Provider Huan Brambila MD Unavailable [phone] Fortunato Rothman MD Unavailable [phone] Encounter Details Date Type Department Care Team (Late st Contact Info) Description 12/06/2022 [facility] 1 [facility] [place] [address] Huan Brambila MD [address] [facility] EDUIN [address] [place] [address] Encounter for screening for COVID-19 [...] 11:30 AM CDT Office Visit [facility] Medical Group - Ear, Nose & Throat - [place] #[address] [place] [address] Fortunato Rothman MD #[address] [place] [address] [phone] documented as of this encounter Procedures Procedure Name Priority Date/Time Associated Diagnosis Comments SARS-COV-2 BY MOLECULAR Routine 12/06/2022 7:14 AM SCRAPER HAND Encounter for screening for COVID-19 documented in this encounter Results * SARS-COV-2 BY MOLECULAR (12/06/2022 7:14 AM SCRAPER HAND) SARSCOV2 NOT DETECTED (Referen ce Range for this test is Not Detected ) [facility] THERMOFISHER FAST DX 12/06/2022 10:53 PM SCRAPER HAND [facility] Comment:This test was perfor med by a RT-PCR method. Other Non-Phlebotomy Collection / Unknown 12/06/2022 7:14 AM SCRAPER HAND 12/06/2022 10:11 AM SCRAPER HAND Narrative [facility] - 12/06/2022 10:53 PM SCRAPER HAND Authorized Fact Sheets about this test for providers and patients are available at: https://www.fda.gov/medical-devices/zridcqslz-ynvdstfkte-kuykoav-devices/emergen -us e-authorizations Result [facility] Huan Brambila MD MICROBIOLOGY - GENERAL ORDERAB LES Final Result Performing Organization Address City/State/[facility] Co de Phone Number [facility] [address] [place] [address], documented in this encounter Visit Diagnoses Diagnosis Encounter for screening for COVID-19 documented in this encounter Additional Health Concerns Infection Onset Date Last Indicated Resolved Time COVID - 19 11/22/2022 02/07/2023 02/17/2023 12:1 6 AM CDT documented as of this encounter Care Teams Blood Donor Recruiter Relationship Specialty Start Date End Date Huan Brambila MD [address] [place] [address] [place] [address] PCP - General Family Medicine 10/05/21 Huan Brambila MD [address] [place] [address] [place] [address] Family Medicine 10/05/21 Fortunato Rothman MD #[address] [place] [address] [address] Consulting Physician Otolaryngology 07/22/25 documented as of this encounter
--- OUTSIDE RECORDS SUMMARY | 2025-08-25 08:53 | XMS_ITS | Encounter Summary ---
Author Organization [facility] Address [address] [facility] [place] [address] Phone Care Team Providers Care Cane Splicer Name Role Phone Huan Brambila MD Primary Care Provider [phone] Huan Brambila MD Unavailable [phone] Fortunato Rothman MD Unavailable [phone] Encounter Details Date Type Department Care Team (Late st Contact Info) Description 06/28/2022 [facility] 1 [facility] [place] [address] Huan Brambila MD 4 [facility] [address] [place] [address] Encounter for screening for COVID-19 [...] Description 02/10/2026 11:30 AM CDT Office Visit [facility] Medical Group - Ear, Nose & Throat - [place] #[address] [place] [address] Fortunato Rothman MD #2 [place] [address] [phone] documented as of this encounter Procedures Procedure Name Priority Date/Time Associated Diagnosis Comments SARS-COV-2 BY MOLECULAR Routine 06/28/2022 6:48 AM CDT documented in this encounter Results * SARS-COV-2 BY MOLECULAR (06/28/2022 6:48 AM CDT) SARSCOV2 NOT DETECTED (Referen ce Range for this test is Not Detected ) [facility] THERMOFISHER FAST DX 06/29/2022 1:01 PM CDT [facility] Comment:This test was perfor med by a RT-PCR method. Other Non-Phlebotomy Collection / Unknown 06/28/2022 6:48 AM CDT 06/28/2022 1:57 PM CDT Narrative [facility] - 06/29/2022 1:01 PM CDT Authorized Fact Sheets about this test for providers and patients are available at: https://www.fda.gov/medical-devices/yyiwzulvy-tquxofkwad-gdhkvvf-devices/emergen -us e-authorizations Huan Brambila MD MICROBIOLOGY - GENERAL ORDERAB LES Final Result [facility] [address] [place] [address], documented in this encounter Visit Diagnoses Diagnosis Encounter for screening for COVID-19 documented in this encounter Additional Health Concerns Infection Onset Date Last Indicated Resolved Time COVID - 19 03/01/2022 10/04/2022 10/14/2022 12:1 6 AM PUBLIC POLICY ASSOCIATE COVID - 19 11/22/2022 02/07/2023 02/17/2023 12:1 6 AM CDT documented as of this encounter Care Teams Cane Splicer Relationship Specialty Start Date End Date Huan Brambila MD [address] [place] [address] [place] [address] PCP - General Family Medicine 10/05/21 Huan Brambila MD [address] [facility] [address] [place] [address] Family Medicine 10/05/21 Fortunato Rothman MD #[address] [place] [address] Consulting Physician Otolaryngology 07/22/25 documented as of this encounter
--- OUTSIDE RECORDS SUMMARY | 2025-08-25 08:53 | XMS_ITS | Encounter Summary ---
Author Organization [facility] Address [address] [place] [facility] [place] [address] Phone Care Team Providers Care Equipment Operation Instructor Name Role Phone Huan Brambila MD Primary Care Provider Huan Brambila MD Unavailable [phone] Fortunato Rothman MD Unavailable [phone] Encounter Details Date Type Department Care Team (Late st Contact Info) Description 05/03/2022 [facility] 1 [facility] [place] [address] Huan Brambila MD 4 [facility] EDUIN [address] [place] [address] Encounter for screening for COVID-19 [...] Description 02/10/2026 11:30 AM CDT Office Visit [facility] Medical Group - Ear, Nose & Throat - [place] #[address] [place] [address] Fortunato Rothman MD #[address] [place] [address] [address] documented as of this encounter Procedures Procedure Name Priority Date/Time Associated Diagnosis Comments SARS-COV-2 BY MOLECULAR Routine 05/03/2022 6:57 AM CDT Encounter for screening for COVID-19 documented in this encounter Results * SARS-COV-2 BY MOLECULAR (05/03/2022 6:57 AM CDT) SARSCOV2 NOT DETECTED (Referen ce Range for this test is Not Detected ) [facility] THERMOFISHER FAST DX 05/04/2022 6:49 AM CDT [facility] Comment:This test was perfor med by a RT-PCR method. Other Non-Phlebotomy Collection / Unknown 05/03/2022 6:57 AM CDT 05/03/2022 10:03 AM CDT Narrative [facility] - 05/04/2022 6:49 AM CDT Authorized Fact Sheets about this test for providers and patients are available at: https://www.fda.gov/medical-devices/aexualqxm-xqkldfmuku-ptpbyko-devices/emergen cy-us e-authorizations us Huan Brambila MD MICROBIOLOGY - GENERAL ORDERAB LES Final Result [facility] [address] [place] [address], documented in this encounter Visit Diagnoses Diagnosis Encounter for screening for COVID-19 documented in this encounter Additional Health Concerns Infection Onset Date Last Indicated Resolved Time COVID - 19 03/01/2022 10/04/2022 10/14/2022 12:1 6 AM DIE EQUIPMENT OPERATOR COVID - 19 11/22/2022 02/07/2023 02/17/2023 12:1 6 AM CDT documented as of this encounter Care Teams Equipment Operation Instructor Relationship Specialty Start Date End Date Huan Brambila MD [address] [place] [address] [address] [place] [address] PCP - General Family Medicine 10/05/21 Huan Brambila MD [address] [facility] [address] [place] [address] Family Medicine 10/05/21 Fortunato Rothman MD #2 [place] [address] [place] [address] Consulting Physician Otolaryngology 07/22/25 documented as of this encounter
--- OUTSIDE RECORDS SUMMARY | 2025-08-25 08:53 | XMS_ITS | Encounter Summary ---
Author Organization [facility] Address [address] [facility] [place] [address] Phone Care Team Providers Care Bioinformatics Scientist Name Role Phone Huan Brambila MD Primary Care Provider Huan Brambila MD Primary Care Provider [phone] Huan Brambila MD Unavailable [phone] oFrtunato Rothman MD Unavailable [phone] Encounter Details Date Type Department Care Team (Late st Contact Info) Description 09/07/2021 [facility] [address] [place] [address] Huan Brambila MD [address] [place] [address] Encounter for screening for COVID-19 Social [...] Group - Ear, Nose & Throat - [place] #[address] [place] [address] Fortunato Rothman MD #[address] [place] [address] [address] documented as of this encounter Procedures Procedure Name Priority Date/Time Associated Diagnosis Comments SARS-COV-2 BY MOLECULAR Routine 09/07/2021 7:07 AM CDT Encounter for screening for COVID-19 documented in this encounter Results * SARS-COV-2 BY MOLECULAR (09/07/2021 7:07 AM CDT) SARSCOV2 NOT DETECTED (Referen ce Range for this test is Not Detected ) [facility] THERMOFISHER FAST DX 09/08/2021 12:33 PM CDT [facility] Comment:This test was perfor med by a RT-PCR method. Other Non-Phlebotomy Collection / Unknown 09/07/2021 7:07 AM CDT 09/07/2021 11:46 AM CDT Narrative [facility] - 09/08/2021 12:33 PM CDT Authorized Fact Sheets about this test for providers and patients are available at: https://www.fda.gov/medical-devices/bxjelwgln-wagvymqoss-dcqdltj-devices/emergen -us e-authorizations us Huan Brambila MD MICROBIOLOGY - GENERAL ORDERAB LES Final Result [facility] [address] [place] [address], documented in this encounter Visit Diagnoses Diagnosis Encounter for screening for COVID-19 documented in this encounter Additional Health Concerns Infection Onset Date Last Indicated Resolved Time COVID - 19 08/17/2021 10/26/2021 11/01/2021 12:1 6 AM 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 COVID - 19 10/05/2021 11/02/2021 11/03/2021 5:59 PM 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 COVID - 19 Confirmed 11/02/2021 11/02/202111/22/ 021 12:16 AM 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 COVID - 19 11/30/2021 12/07/2021 12/20/2021 12:1 7 AM 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 COVID - 19 12/07/2021 12/07/2021 12/09/2021 10:5 3 AM 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 COVID - 19 Confirmed 12/07/2021 12/07/2021 022 12:17 AM 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 COVID - 19 03/01/2022 10/04/2022 10/14/2022 12:1 6 AM 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 COVID - 19 11/22/2022 02/07/2023 02/17/2023 12:1 6 AM CDT documented as of this encounter Care Teams Bioinformatics Scientist Relationship Specialty Start Date End Date Huan Brambila MD [address] [facility] [place] [address] PCP - General Family Medicine 08/25/19 10/04/21 Huan Brambila MD [address] [place] [address] PCP - General Family Medicine 10/05/21 Huan Brambila MD [address] [facility] [place] [address] Family Medicine 10/05/21 Fortunato Rothman MD #[address] [place] [address] Consulting Physician Otolaryngology 07/22/25 documented as of this encounter
--- OUTSIDE RECORDS SUMMARY | 2025-08-25 08:53 | XMS_ITS | Encounter Summary ---
Author Organization [facility] Address [address] [place] [facility] [place] [address] Phone Care Team Providers Care Education Supervisor Name Role Phone Huan Brambila MD Primary Care Provider [phone] Huan Brambila MD Unavailable [phone] Fortunato Rothman MD Unavailable [phone] Encounter Details Date Type Department Care Team (Late st Contact Info) Description 09/20/2022 [facility] 1 [facility] [place] [address] Huan Brambila MD 4 [facility] ED[address] [place] [address] Encounter for screening for COVID-19 [...] Description 02/10/2026 11:30 AM CDT Office Visit [facility] Medical Group - Ear, Nose & Throat - [place] #[address] [place] [address] Fortunato Rothman MD #[address] [place] [address] [address] documented as of this encounter Procedures Procedure Name Priority Date/Time Associated Diagnosis Comments SARS-COV-2 BY MOLECULAR Routine 09/20/2022 7:19 AM CDT Encounter for screening for COVID-19 documented in this encounter Results * SARS-COV-2 BY MOLECULAR (09/20/2022 7:19 AM CDT) SARSCOV2 NOT DETECTED (Referen ce Range for this test is Not Detected ) [facility] THERMOFISHER FAST DX 09/21/2022 12:21 AM CDT [facility] Comment:This test was perfor med by a RT-PCR method. Other Non-Phlebotomy Collection / Unknown 09/20/2022 7:19 AM CDT 09/20/2022 12:29 PM CDT [facility]ative [facility] - 09/21/2022 12:21 AM CDT Authorized Fact Sheets about this test for providers and patients are available at: https://www.fda.gov/medical-devices/jdbyqcxpo-ieaerrcoxo-wgrqmal-devices/emergen cy-us e-authorizations us Huan Brambila MD MICROBIOLOGY - GENERAL ORDERAB LES Final Result 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
--- OUTSIDE RECORDS SUMMARY | 2025-08-25 08:53 | XMS_ITS | Encounter Summary ---
Author Organization [facility] Address [address] [place] [address] Phone Care Team Providers Care Anode Machine Operator Name Role Phone Huan Brambila MD Primary Care Provider Huan Brambila MD Unavailable [phone] Fortunato Rothman MD Unavailable [phone] Encounter Details Date Type Department Care Team (Late st Contact Info) Description 05/31/2022 [facility] 1 [facility] [place] [address] Huan Brambila MD 4 [facility] [address] [place] [address] Encounter for screening for COVID-19 [...] Description 02/10/2026 11:30 AM CDT Office Visit [facility] Medical Group - Ear, Nose & Throat - [place] [address] [place] [address] Fortunato Rothman MD #[address] [facility] [address] [address] [address] documented as of this encounter Procedures Procedure Name Priority Date/Time Associated Diagnosis Comments SARS-COV-2 BY MOLECULAR Routine 05/31/2022 7:03 AM CDT Encounter for screening for COVID-19 documented in this encounter Results * SARS-COV-2 BY MOLECULAR (05/31/2022 7:03 AM CDT) SARSCOV2 NOT DETECTED (Referen ce Range for this test is Not Detected ) [facility] THERMOFISHER FAST DX 06/01/2022 12:15 AM CDT [facility] Comment:This test was perfor med by a RT-PCR method. Other Non-Phlebotomy Collection / Unknown 05/31/2022 7:03 AM CDT 05/31/2022 11:44 AM CDT Narrative [facility] - 06/01/2022 12:15 AM CDT Authorized Fact Sheets about this test for providers and patients are available at: https://www.fda.gov/medical-devices/zqynfplak-vtxdtqnxzt-txgrsxc-devices/emergen cy-us e-authorizations us Huan Brambila MD MICROBIOLOGY - GENERAL ORDERAB LES Final Result [facility] [address] [place] [address], documented in this encounter Visit Diagnoses Diagnosis Encounter for screening for COVID-19 documented in this encounter Additional Health Concerns Infection Onset Date Last Indicated Resolved Time COVID - 19 03/01/2022 10/04/2022 10/14/2022 12:1 6 AM 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
--- OUTSIDE RECORDS SUMMARY | 2025-08-25 08:53 | XMS_ITS | Encounter Summary ---
Author Organization [facility] Address [address] [place] [address] [facility] [place] [address] Phone Care Team Providers Care Broadcast Correspondent Name Role Phone Huan Brambila MD Primary Care Provider [phone] Huan Brambila MD Unavailable [phone] Fortunato Rothman MD Unavailable [phone] Encounter Details Date Type Department Care Team (Late st Contact Info) Description 08/23/2022 [facility] 1 [facility] [place] [address] Huan Brambila MD [address] [facility] [address] [place] [address] Encounter for screening for COVID-19 [...] Description 02/10/2026 11:30 AM CDT Office Visit [facility] Medical Group - Ear, Nose & Throat - [place] [address] [place] [address] Fortunato Rothman MD #[address] [place] [address] [address] [address] documented as of this encounter Procedures Procedure Name Priority Date/Time Associated Diagnosis Comments SARS-COV-2 BY MOLECULAR Routine 08/23/2022 7:15 AM CDT Encounter for screening for COVID-19 documented in this encounter Results * SARS-COV-2 BY MOLECULAR (08/23/2022 7:15 AM CDT) SARSCOV2 NOT DETECTED (Referen ce Range for this test is Not Detected ) [facility] THERMOFISHER FAST DX 08/24/2022 12:09 AM CDT [facility] Comment:This test was perfor med by a RT-PCR method. Other Non-Phlebotomy Collection / Unknown 08/23/2022 7:15 AM CDT 08/23/2022 11:55 AM CDT Narrative [facility] - 08/24/2022 12:09 AM CDT Authorized Fact Sheets about this test for providers and patients are available at: https://www.fda.gov/medical-devices/wtdnqgwjf-lybhrprkwm-jbkvexf-devices/emergen cy-us e-authorizations us Huan Brambila MD MICROBIOLOGY - GENERAL ORDERAB LES Final Result [facility] [address] [place] [address], documented in this encounter Visit Diagnoses Diagnosis Encounter for screening for COVID-19 documented in this encounter Additional Health Concerns Infection Onset Date Last Indicated Resolved Time COVID - 19 03/01/2022 10/04/2022 10/14/2022 12:1 6 AM 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
--- OUTSIDE RECORDS SUMMARY | 2025-08-25 08:53 | XMS_ITS | Encounter Summary ---
Author Organization [facility] Address [address] [place] [address] [facility] [place] [address] Phone Care Team Providers Care Health And Safety Specialist Name Role Phone Huan Brambila MD Primary Care Provider Huan Brambila MD Unavailable [phone] Fortunato Rothman MD Unavailable [phone] Encounter Details Date Type Department Care Team (Late st Contact Info) Description 08/09/2022 [facility] 1 [facility] [place] [address] Huan Brambila MD 4 [facility] [address] [place] [address] Encounter for screening for COVID-19 [...] 02/10/2026 11:30 AM CDT Office Visit [facility] Medical Group - Ear, Nose & Throat - [place] #[address] [place] [address] Fortunato Rothman MD #[address] [place] [address] [address] [address] documented as of this encounter Procedures Procedure Name Priority Date/Time Associated Diagnosis Comments SARS-COV-2 BY MOLECULAR Routine 08/09/2022 7:06 AM CDT Encounter for screening for COVID-19 documented in this encounter Results * SARS-COV-2 BY MOLECULAR (08/09/2022 7:06 AM CDT) SARSCOV2 NOT DETECTED (Referen ce Range for this test is Not Detected ) [facility] THERMOFISHER FAST DX 08/09/2022 10:11 PM CDT [facility] Comment:This test was perfor med by a RT-PCR method. Other Non-Phlebotomy Collection / Unknown 08/09/2022 7:06 AM CDT 08/09/2022 9:50 AM CDT Narrative [facility] - 08/09/2022 10:11 PM CDT Authorized Fact Sheets about this test for providers and patients are available at: https://www.fda.gov/medical-devices/ldxrudgoy-ymtwmuwpjl-qgsizyk-devices/emergen cy-us e-authorizations us Huan Brambila MD MICROBIOLOGY - GENERAL ORDERAB LES Final Result [facility] [address] [place] [address], documented in this encounter Visit Diagnoses Diagnosis Encounter for screening for COVID-19 documented in this encounter Additional Health Concerns Infection Onset Date Last Indicated Resolved Time COVID - 19 03/01/2022 10/04/2022 10/14/2022 12:1 6 AM AGENT BROKER COVID - 19 11/22/2022 02/07/2023 02/17/2023 12:1 6 AM CDT documented as of this encounter Care Teams Health And Safety Specialist Relationship Specialty Start Date End Date Huan Brambila MD [address] [facility] [address] [place] [address] PCP - General Family Medicine 10/05/21 Huan Brambila MD [address] [facility] [address] [place] [address] Family Medicine 10/05/21 Fortunato Rothman MD #[address] [facility] [place] [address] [place] [address] Consulting Physician Otolaryngology 07/22/25 documented as of this encounter
--- OUTSIDE RECORDS SUMMARY | 2025-08-25 08:53 | XMS_ITS | Encounter Summary ---
Author Organization [facility] Address [address] [place] [address] Phone Care Team Providers Care Money Laundering Investigator Name Role Phone Huan Brambila MD Primary Care Provider [phone] Huan Brambila MD Unavailable [phone] Fortunato Rothman MD Unavailable [phone] Encounter Details Date Type Department Care Team (Late st Contact Info) Description 02/07/2023 [facility] 1 [facility] [place] [address] Huan Brambila MD 4 [facility] [address] [place] [address] Encounter for screening for COVID-19 [...] Description 02/10/2026 11:30 AM CDT Office Visit [facility] Medical Group - Ear, Nose & Throat - [place] #[address] [place] [address] Fortunato Rothman MD #[address] [place] [address] [address] [address] documented as of this encounter Procedures Procedure Name Priority Date/Time Associated Diagnosis Comments SARS-COV-2 BY MOLECULAR Routine 02/07/2023 7:16 AM CDT Encounter for screening for COVID-19 documented in this encounter Results * SARS-COV-2 BY MOLECULAR (02/07/2023 7:16 AM CDT) SARSCOV2 NOT DETECTED (Referen ce Range for this test is Not Detected ) [facility] THERMOFISHER FAST DX 02/07/2023 5:01 PM CDT [facility] Comment:This test was perfor med by a RT-PCR method. Other Non-Phlebotomy Collection / Unknown 02/07/2023 7:16 AM CDT 02/07/2023 9:40 AM CDT Narrative [facility] - 02/07/2023 5:01 PM CDT Authorized Fact Sheets about this test for providers and patients are available at: https://www.fda.gov/medical-devices/vdlauszst-xgnoakdaxx-qzajqzu-devices/emergen -us e-authorizations Huan Brambila MD MICROBIOLOGY - GENERAL ORDERAB LES Final Result [facility] [address] [place] [address], documented in this encounter Visit Diagnoses Diagnosis Encounter for screening for COVID-19 documented in this encounter Additional Health Concerns Infection Onset Date Last Indicated Resolved Time COVID - 19 11/22/2022 02/07/2023 02/17/2023 12:1 6 AM CDT documented as of this encounter Care Teams Money Laundering Investigator Relationship Specialty Start Date End Date Huan Brambila MD [address] [facility] [address] [place] [address] PCP - General Family Medicine 10/05/21 Huan Brambila MD [address] [facility] [address] [place] [address] Family Medicine 10/05/21 Fortunato Rothman MD #[address] [facility] [address] [address] [facility] [address] [place] [address] Consulting Physician Otolaryngology 07/22/25 documented as of this encounter
--- OUTSIDE RECORDS SUMMARY | 2025-08-25 08:53 | XMS_ITS | Encounter Summary ---
Author Organization [facility] Address [address] [place] [address] [facility] [place] [address] Phone Care Team Providers Care Wet Finisher Wool Name Role Phone Huan Brambila MD Primary Care Provider Huan Brambila MD Unavailable [phone] Fortunato Rothman MD Unavailable [phone] Encounter Details Date Type Department Care Team (Late st Contact Info) Description 07/26/2022 [facility] 1 [facility] [place] [address] Huan Brambila MD 4 [facility] [address] [place] [address] Encounter for screening for COVID-19 [...] Group - Ear, Nose & Throat - [place] #[address] [place] [address] Fortunato Rothman MD #[address] [place] [address] [address] [address] documented as of this encounter Procedures Procedure Name Priority Date/Time Associated Diagnosis Comments SARS-COV-2 BY MOLECULAR Routine 07/26/2022 7:08 AM CDT Encounter for screening for COVID-19 documented in this encounter Results * SARS-COV-2 BY MOLECULAR (07/26/2022 7:08 AM CDT) SARSCOV2 NOT DETECTED (Referen ce Range for this test is Not Detected ) [facility] THERMOFISHER FAST DX 07/27/2022 9:18 AM CDT [facility] Comment:This test was perfor med by a RT-PCR method. Other Non-Phlebotomy Collection / Unknown 07/26/2022 7:08 AM CDT 07/26/2022 12:55 PM CDT Narrative [facility] - 07/27/2022 9:18 AM CDT Authorized Fact Sheets about this test for providers and patients are available at: https://www.fda.gov/medical-devices/pqtidtlin-uguyavouds-zxibtjv-devices/emergen cy-us e-authorizations us Huan Brambila MD MICROBIOLOGY - GENERAL ORDERAB LES Final Result [facility] [address] [place] [address], documented in this encounter Visit Diagnoses Diagnosis Encounter for screening for COVID-19 documented in this encounter Additional Health Concerns Infection Onset Date Last Indicated Resolved Time COVID - 19 03/01/2022 10/04/2022 10/14/2022 12:1 6 AM 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
--- OUTSIDE RECORDS SUMMARY | 2025-08-25 08:53 | XMS_ITS | Encounter Summary ---
Author Organization [facility] Address [address] [facility] [place] [address] Phone Care Team Providers Care Dinner Cook Name Role Phone Huan Brambila MD Primary Care Provider Huan Brambila MD Primary Care Provider [phone] Huan Brambila MD Unavailable [phone] Fortunato Rothman MD Unavailable [phone] Encounter Details Date Type Department Care Team (Late st Contact Info) Description 09/28/2021 [facility] [address] [place] [address] Huan Brambila MD [address] [place] [address] Encounter for screening for COVID-19 Social [...] Group - Ear, Nose & Throat - [place] #[address] [place] [address] Fortunato Rothman MD #[address] [place] [address] [address] documented as of this encounter Procedures Procedure Name Priority Date/Time Associated Diagnosis Comments SARS-COV-2 BY MOLECULAR Routine 09/28/2021 7:06 AM CDT Encounter for screening for COVID-19 documented in this encounter Results * SARS-COV-2 BY MOLECULAR (09/28/2021 7:06 AM CDT) SARSCOV2 NOT DETECTED (Referen ce Range for this test is Not Detected ) [facility] THERMOFISHER FAST DX 09/28/2021 11:51 PM CDT [facility] Comment:This test was perfor med by a RT-PCR method. Other No Phlebotomy Charged / Unknown 09/28/2021 7:06 AM CDT 09/28/2021 11:00 AM CDT Narrative [facility] - 09/28/2021 11:51 PM CDT Authorized Fact Sheets about this test for providers and patients are available at: https://www.fda.gov/medical-devices/evdeczdaj-ckbrazpobh-nerjlsw-devices/emergen -us e-authorizations us Huan Brambila MD MICROBIOLOGY - GENERAL ORDERAB LES Final Result [facility] [address] [place] [address], documented in this encounter Visit Diagnoses Diagnosis Encounter for screening for COVID-19 documented in this encounter Additional Health Concerns Infection Onset Date Last Indicated Resolved Time COVID - 19 08/17/2021 10/26/2021 11/01/2021 12:1 6 AM 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 AND 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 COVID - 19 10/05/2021 11/02/2021 11/03/2021 5:59 PM CLIP BOLTER AND WRAPPER COVID - 19 Confirmed 11/02/2021 11/02/202111/22/2 021 12:16 AM CLIP BOLTER AND WRAPPER COVID - 19 11/30/2021 12/07/2021 12/20/2021 12:1 7 AM CLIP BOLTER AND WRAPPER COVID - 19 12/07/2021 12/07/2021 12/09/2021 10:5 3 AM CLIP BOLTER AND WRAPPER COVID - 19 Confirmed 12/07/2021 12/07/2021 022 12:17 AM CLIP BOLTER AND WRAPPER COVID - 19 03/01/2022 10/04/2022 10/14/2022 12:1 6 AM CLIP BOLTER AND WRAPPER COVID - 19 11/22/2022 02/07/2023 02/17/2023 12:1 6 AM CDT documented as of this encounter Care Teams Dinner Cook Relationship Specialty Start Date End Date Huan Brambila MD [address] [facility] [place] [address] PCP - General Family Medicine 08/25/19 10/04/21 Huan Brambila MD [address] [facility] [place] [address] PCP - General Family Medicine 10/05/21 Huan Brambila MD [address] [facility] [place] [address] Family Medicine 10/05/21 Fortunato Rothman MD #2 [place] [address] Consulting Physician Otolaryngology 07/22/25 documented as of this encounter
--- OUTSIDE RECORDS SUMMARY | 2025-08-25 08:53 | XMS_ITS | Encounter Summary ---
Author Organization [facility] Address [address] [facility] [place] [address] Phone Care Team Providers Care Title Camera Operator Name Role Phone Huan Brambila MD Primary Care Provider Huan Brambila MD Unavailable [phone] Fortunato Rothman MD Unavailable [phone] Encounter Details Date Type Department Care Team (Late st Contact Info) Description 12/07/2021 [facility] [address] [place] [address] Huan Brambila MD 4 [facility] [address] [place] [address] Encounter for screening for COVID-19 [...] Description 02/10/2026 11:30 AM CDT Office Visit [facility] Medical Group - Ear, Nose & Throat - [place] #[address] [place] [address] Fortunato Rothman MD #[address] [facility] [address] [address] [address] documented as of this encounter Procedures Procedure Name Priority Date/Time Associated Diagnosis Comments SARS-COV-2 BY MOLECULAR Routine 12/07/2021 7:02 AM ALLERGIST Encounter for screening for COVID-19 documented in this encounter Results * (ABNORMAL) SARS-COV-2 BY MOLECULAR (12/07/2021 7:02 AM ALLERGIST) SARSCOV2 DETECTED( A) (Referenc e Range for this test is Not Detected) [facility] THERMOFISHER FAST DX 12/09/2021 10:53 AM ALLERGIST [facility] Comment:This test was perfor med by a RT-PCR method. Other Non-Phlebotomy Collection / Unknown 12/07/2021 7:02 AM ALLERGIST 12/07/2021 11:56 AM ALLERGIST Narrative [facility] - 12/09/2021 10:53 AM ALLERGIST Authorized Fact Sheets about this test for providers and patients are available at: https://www.fda.gov/medical-devices/ehxlpqymp-sohmrajqhn-uujjzsq-devices/emergen -us e-authorizations Huan Brambila MD MICROBIOLOGY - GENERAL ORDERAB LES Final Result [facility] [address] [place] [address], documented in this encounter Visit Diagnoses Diagnosis Encounter for screening for COVID-19 documented in this encounter Additional Health Concerns Infection Onset Date Last Indicated Resolved Time COVID - 19 11/30/2021 12/07/2021 12/20/2021 12:1 7 AM ALLERGIST COVID - 19 12/07/2021 12/07/2021 12/09/2021 10:5 3 AM ALLERGIST COVID - 19 Confirmed 12/07/2021 12/07/2021 022 12:17 AM ALLERGIST COVID - 19 03/01/2022 10/04/2022 10/14/2022 12:1 6 AM ALLERGIST COVID - 19 11/22/2022 02/07/2023 02/17/2023 12:1 6 AM CDT documented as of this encounter Care Teams Title Camera Operator Relationship Specialty Start Date End Date Huan Brambila MD [address] [facility] [address] [place] [address] PCP - General Family Medicine 10/05/21 Huan Brambila MD [address] [facility] [address] [place] [address] Family Medicine 10/05/21 Fortunato Rothman MD #[address] [address] Consulting Physician Otolaryngology 07/22/25 documented as of this encounter
--- OUTSIDE RECORDS SUMMARY | 2025-08-25 08:53 | XMS_ITS | Encounter Summary ---
Author Organization [facility] Address [address] [place] [address] [facility] [place] [address] Phone Care Team Providers Care Correctional Lieutenant Name Role Phone Huan Brambila MD Primary Care Provider [phone] Huan Brambila MD Primary Care Provider [phone] Huan Brambila MD Unavailable [phone] Fortunato Rothman MD Unavailable [phone] Encounter Details Date Type Department Care Team (Late st Contact Info) Description 08/17/2021 [facility] [address] [place] [address] Huan Brambila MD [address] [place] [address] [address] [place] [address] Social History Tobacco Use Types Packs/Day Years [...] Group - Ear, Nose & Throat - [place] #[address] [place] [address] Fortunato Rothman MD #[address] [place] [address] [address] documented as of this encounter Procedures Procedure Name Priority Date/Time Associated Diagnosis Comments SARS-COV-2 BY MOLECULAR Routine 08/17/2021 8:52 AM CDT documented in this encounter Results * SARS-COV-2 BY MOLECULAR (08/17/2021 8:52 AM CDT) SARSCOV2 NOT DETECTED (Referen ce Range for this test is Not Detected ) [facility] THERMOFISHER FAST DX 08/18/2021 8:26 AM CDT [facility] Comment:This test was perfor med by a RT-PCR method. Other Non-Phlebotomy Collection / Unknown 08/17/2021 8:52 AM CDT 08/17/2021 11:22 AM CDT Narrative [facility] - 08/18/2021 8:26 AM CDT Authorized Fact Sheets about this test for providers and patients are available at: https://www.fda.gov/medical-devices/qpommyohn-kwbmzxzvob-lcobyql-devices/emergen -us e-authorizations us Huan Brambila MD MICROBIOLOGY - GENERAL ORDERAB LES Final Result [facility] [address] [place] [address], documented in this encounter Visit Diagnoses Not on filedocumented in this encounter Additional Health Concerns Infection Onset Date Last Indicated Resolved Time COVID - 19 08/17/2021 10/26/2021 11/01/2021 12:1 6 AM GRAVURE PRESS OPERATOR COVID - 19 10/05/2021 11/02/2021 11/03/2021 5:59 PM GRAVURE PRESS OPERATOR COVID - 19 Confirmed 11/02/2021 11/02/202111/22/ 021 12:16 AM GRAVURE PRESS OPERATOR COVID - 19 11/30/2021 12/07/2021 12/20/2021 12:1 7 AM GRAVURE PRESS OPERATOR COVID - 19 12/07/2021 12/07/2021 12/09/2021 10:5 3 AM GRAVURE PRESS OPERATOR COVID - 19 Confirmed 12/07/2021 12/07/2021 022 12:17 AM GRAVURE PRESS OPERATOR COVID - 19 03/01/2022 10/04/2022 10/14/2022 12:1 6 AM GRAVURE PRESS OPERATOR COVID - 19 11/22/2022 02/07/2023 02/17/2023 12:1 6 AM CDT documented as of this encounter Care Teams Correctional Lieutenant Relationship Specialty Start Date End Date Huan Brambila MD 4 [facility] [place] [address] PCP - General Family Medicine 08/25/19 10/04/21 Huan Brambila MD 4 [facility] [place] [address] PCP - General Family Medicine 10/05/21 Huan Brambila MD 4 [facility] [place] [address] Family Medicine 10/05/21 Fortunato Rothman MD #[address] [place] [address] [place] [address] Consulting Physician Otolaryngology 07/22/25 documented as of this encounter
--- OUTSIDE RECORDS SUMMARY | 2025-08-25 08:53 | XMS_ITS | Encounter Summary ---
Author Organization [facility] Address [address] [facility] [place] [address] Phone Care Team Providers Care Senior Product Analyst Name Role Phone Huan Brambila MD Primary Care Provider Huan Brambila MD Unavailable [phone] Fortunato Rothman MD Unavailable [phone] Encounter Details Date Type Department Care Team (Late st Contact Info) Description 10/19/[facility] [address] [place] [address] Huan Brambila MD 4 [facility] [address]UIN [address] [place] [address] Encounter for screening for COVID-19 [...] & Throat - [place] #[address] [place] [address] Fortunato Rothman MD #[address] [address] documented as of this encounter Procedures Procedure Name Priority Date/Time Associated Diagnosis Comments SARS-COV-2 BY MOLECULAR Routine 10/19/2021 7:10 AM POWDER CORE TESTER documented in this encounter Results * SARS-COV-2 BY MOLECULAR (10/19/2021 7:10 AM POWDER CORE TESTER) SARSCOV2 NOT DETECTED (Referen ce Range for this test is Not Detected ) [facility] THERMOFISHER FAST DX 10/20/2021 12:07 PM POWDER CORE TESTER [facility] Comment:This test was perfor med by a RT-PCR method. Other No Phlebotomy Charged / Unknown 10/19/2021 7:10 AM POWDER CORE TESTER 10/19/2021 11:07 AM POWDER CORE TESTER Narrative [facility] - 10/20/2021 12:07 PM POWDER CORE TESTER Authorized Fact Sheets about this test for providers and patients are available at: https://www.fda.gov/medical-devices/oyahxkqkc-bvkefwekzh-ihooxrj-devices/emergen cy-us e-authorizations us Huan Brambila MD MICROBIOLOGY - GENERAL ORDERAB LES Final Result [facility] [address] [place] [address], documented in this encounter Visit Diagnoses Diagnosis Encounter for screening for COVID-19 documented in this encounter Additional Health Concerns Infection Onset Date Last Indicated Resolved Time COVID - 19 08/17/2021 10/26/2021 11/01/2021 12:1 6 AM POWDER CORE TESTER COVID - 19 10/05/2021 11/02/2021 11/03/2021 5:59 PM POWDER CORE TESTER COVID - 19 Confirmed 11/02/2021 11/02/202111/22/2 021 12:16 AM POWDER CORE TESTER COVID - 19 11/30/2021 12/07/2021 12/20/2021 12:1 7 AM POWDER CORE TESTER COVID - 19 12/07/2021 12/07/2021 12/09/2021 10:5 3 AM POWDER CORE TESTER COVID - 19 Confirmed 12/07/2021 12/07/2021 022 12:17 AM POWDER CORE TESTER COVID - 19 03/01/2022 10/04/2022 10/14/2022 12:1 6 AM POWDER CORE TESTER COVID - 19 11/22/2022 02/07/2023 02/17/2023 12:1 6 AM CDT documented as of this encounter Care Teams Senior Product Analyst Relationship Specialty Start Date End Date Huan Brambila MD [address] [place] [address] [place] [address] PCP - General Family Medicine 10/05/21 Huan Brambila MD [address] [place] [address] [place] [address] Family Medicine 10/05/21 Fortunato Rothman MD #2 [address] [place] [address] Consulting Physician Otolaryngology 07/22/25 documented as of this encounter
--- OUTSIDE RECORDS SUMMARY | 2025-08-25 08:53 | XMS_ITS | Encounter Summary ---
Author Organization [facility] Address [address] [facility] [place] [address] Phone Care Team Providers Care Store Lead Name Role Phone Huan Brambila MD Primary Care Provider [phone] Huan Brambila MD Unavailable [phone] Fortunato Rothman MD Unavailable [phone] Encounter Details Date Type Department Care Team (Late st Contact Info) Description 08/02/2022 [facility] 1 [facility] [place] [address] Huan Brambila MD [address] [facility] [address]IN [address] [place] [address] Encounter for screening for COVID-19 [...] Description 02/10/2026 11:30 AM CDT Office Visit [facility] - Ear, Nose & Throat - [place] [address] [place] [address] Fortunato Rothman MD #[address] [address] documented as of this encounter Procedures Procedure Name Priority Date/Time Associated Diagnosis Comments SARS-COV-2 BY MOLECULAR Routine 08/02/2022 7:10 AM CDT Encounter for screening for COVID-19 documented in this encounter Results * SARS-COV-2 BY MOLECULAR (08/02/2022 7:10 AM CDT) SARSCOV2 NOT DETECTED (Referen ce Range for this test is Not Detected ) [facility] THERMOF[facility]ER FAST DX 08/03/2022 8:42 AM CDT [facility] Comment:This test was perfor med by a RT-PCR method. Other COVID 19 Home Health/ [facility] Collection / Unknown 08/02/2022 7:10 AM CDT 08/02/2022 1:49 PM CDT Narrative [facility] - 08/03/2022 8:42 AM CDT Authorized Fact Sheets about this test for providers and patients are available at: https://www.fda.gov/medical-devices/ucmlsbjdj-mqzqmswmsj-przhdrw-devices/emergen -us e-authorizations us Huan Brambila MD MICROBIOLOGY - GENERAL ORDERAB LES Final Result [facility] [address] [place] [address], documented in this encounter Visit Diagnoses Diagnosis Encounter for screening for COVID-19 documented in this encounter Additional Health Concerns Infection Onset Date Last Indicated Resolved Time COVID - 19 03/01/2022 10/04/2022 10/14/2022 12:1 6 AM CREAM HAULER COVID - 19 11/22/2022 02/07/2023 02/17/2023 12:1 6 AM CDT documented as of this encounter Care Teams Store Lead Relationship Specialty Start Date End Date Huan Brambila MD 4 [facility] [address] [place] [address] PCP - General Family Medicine 10/05/21 Huan Brambila MD 4 [facility] [address] [place] [address] Family Medicine 10/05/21 Fortunato Rothman MD #2 [facility] DEIONFlorentin M[address] [facility] [address] [place] [address] Consulting Physician Otolaryngology 07/22/25 documented as of this encounter
--- OUTSIDE RECORDS SUMMARY | 2025-08-25 08:53 | XMS_ITS | Encounter Summary ---
Author Organization [facility] Address [address] [place] [address] [facility] [place] [address] Phone Care Team Providers Care Process Mechanic Name Role Phone Huan Brambila MD Primary Care Provider Huan Brambila MD Unavailable [phone] Fortunato Rothman MD Unavailable [phone] Encounter Details Date Type Department Care Team (Late st Contact Info) Description 07/05/2022 [facility] 1 [facility] [place] [address] Huan Brambila MD 4 [facility] EDUIN [address] [place] [address] Encounter for screening for COVID-19 [...] Description 02/10/2026 11:30 AM CDT Office Visit [facility] Medical [facility] - Ear, Nose & Throat - [place] #[address] [place] [address] Fortunato Rothman MD #[address] [address] documented as of this encounter Procedures Procedure Name Priority Date/Time Associated Diagnosis Comments SARS-COV-2 BY MOLECULAR Routine 07/05/2022 7:04 AM CDT Encounter for screening for COVID-19 documented in this encounter Results * SARS-COV-2 BY MOLECULAR (07/05/2022 7:04 AM CDT) SARSCOV2 NOT DETECTED (Referen ce Range for this test is Not Detected ) [facility] THERMOFISHER FAST DX 07/06/2022 6:46 AM CDT [facility] Comment:This test was perfor med by a RT-PCR method. Other Non-Phlebotomy Collection / Unknown 07/05/2022 7:04 AM CDT 07/05/2022 12:07 PM CDT Narrative [facility] - 07/06/2022 6:46 AM CDT Authorized Fact Sheets about this test for providers and patients are available at: https://www.fda.gov/medical-devices/boxnyokfu-lhdhciooyu-zxchuyv-devices/emergen cy-us e-authorizations us Huan Brambila MD MICROBIOLOGY - GENERAL ORDERAB LES Final Result [facility] [address] [place] [address], documented in this encounter Visit Diagnoses Diagnosis Encounter for screening for COVID-19 documented in this encounter Additional Health Concerns Infection Onset Date Last Indicated Resolved Time COVID - 19 03/01/2022 10/04/2022 10/14/2022 12:1 6 AM OUTSIDE INSTALLER APPRENTICE COVID - 19 11/22/2022 02/07/2023 02/17/2023 12:1 6 AM CDT documented as of this encounter Care Teams Process Mechanic Relationship Specialty Start Date End Date Huan Brambila MD [address] [place] [address] [address] [place] [address] PCP - General Family Medicine 10/05/21 Huan Brambila MD [address] [facility] [address] [place] [address] Family Medicine 10/05/21 Fortuntao Rothman MD #[address] [place] [address] [place] [address] Consulting Physician Otolaryngology 07/22/25 documented as of this encounter
--- OUTSIDE RECORDS SUMMARY | 2025-08-25 08:53 | XMS_ITS | Encounter Summary ---
Author Organization [facility] Address [address] [place] [address] [facility] [place] [address] Phone Care Team Providers Care Beam Warper Name Role Phone Huan Brambila MD Primary Care Provider [phone] Huan Brambila MD Unavailable [phone] Fortunato Rothman MD Unavailable [phone] Encounter Details Date Type Department Care Team (Late st Contact Info) Description 08/16/2022 [facility] 1 [facility] [place] [address] Huan Brambila MD 4 [facility] EDUIN [address] [place] [address] Encounter for screening for COVID-19 [...] 11:30 AM CDT Office Visit [facility] Medical Group - Ear, Nose & Throat - [place] [address] [place] [address] Fortunato Rothman MD #[address] [address] documented as of this encounter Procedures Procedure Name Priority Date/Time Associated Diagnosis Comments SARS-COV-2 BY MOLECULAR Routine 08/16/2022 7:07 AM CDT Encounter for screening for COVID-19 documented in this encounter Results * SARS-COV-2 BY MOLECULAR (08/16/2022 7:07 AM CDT) SARSCOV2 NOT DETECTED (Referen ce Range for this test is Not Detected ) [facility] THERMOFISHER FAST DX 08/17/2022 12:20 PM CDT [facility] Comment:This test was perfor med by a RT-PCR method. Other Non-Phlebotomy Collection / Unknown 08/16/2022 7:07 AM CDT 08/16/2022 11:31 AM CDT Narrative [facility] - 08/17/2022 12:20 PM CDT Authorized Fact Sheets about this test for providers and patients are available at: https://www.fda.gov/medical-devices/mhrzxjado-tfahfcoggq-xqbgjlw-devices/emergen cy-us e-authorizations us Huan Brambila MD MICROBIOLOGY - GENERAL ORDERAB LES Final Result [facility] [address] [place] [address], documented in this encounter Visit Diagnoses Diagnosis Encounter for screening for COVID-19 documented in this encounter Additional Health Concerns Infection Onset Date Last Indicated Resolved Time COVID - 19 03/01/2022 10/04/2022 10/14/2022 12:1 6 AM PHOTOGRAPHIC PRESS SCREWMAKER COVID - 19 11/22/2022 02/07/2023 02/17/2023 12:1 6 AM CDT documented as of this encounter Care Teams Beam Warper Relationship Specialty Start Date End Date Huan Brambila MD [address] [facility] [address] [place] [address] PCP - General Family Medicine 10/05/21 Huan Brambila MD [address] [facility] [address] [place] [address] Family Medicine 10/05/21 Fortunato Rothman MD #[address] [place] [address] [place] [address] Consulting Physician Otolaryngology 07/22/25 documented as of this encounter
--- OUTSIDE RECORDS SUMMARY | 2025-08-25 08:53 | XMS_ITS | Encounter Summary ---
Author Organization [facility] Address [address] [facility] [place] [address] Phone Care Team Providers Care Staff Nuclear Weapons Officer Name Role Phone Huan Brambila MD Primary Care Provider Huan Brambila MD Unavailable [phone] Fortunato Rothman MD Unavailable [phone] Encounter Details Date Type Department Care Team (Late st Contact Info) Description 11/22/2022 [facility] 1 [facility] [place] [address] Huan Brambila MD 4 [facility] EDUIN [address] [place] [address] Encounter for screening for COVID-19 [...] Description 02/10/2026 11:30 AM CDT Office Visit [facility] Medical Group - Ear, Nose & Throat - [place] [address] [place] [address] Fortunato Rothman MD #[address] [address] [phone] documented as of this encounter Procedures Procedure Name Priority Date/Time Associated Diagnosis Comments SARS-COV-2 BY MOLECULAR Routine 11/22/2022 7:09 AM MATERIALS DIRECTOR Encounter for screening for COVID-19 documented in this encounter Results * SARS-COV-2 BY MOLECULAR (11/22/2022 7:09 AM MATERIALS DIRECTOR) SARSCOV2 NOT DETECTED (Referen ce Range for this test is Not Detected ) [facility] THERMOF[facility]ER FAST DX 11/23/2022 12:02 AM MATERIALS DIRECTOR [facility] Comment:This test was perfor med by a RT-PCR method. Other Non-Phlebotomy Collection / Unknown 11/22/2022 7:09 AM MATERIALS DIRECTOR 11/22/2022 1:27 PM MATERIALS DIRECTOR Narrative [facility] - 11/23/2022 12:02 AM MATERIALS DIRECTOR Authorized Fact Sheets about this test for providers and patients are available at: https://www.fda.gov/medical-devices/izddvusir-hnafnhjbhh-mbmxujq-devices/emergen -us e-authorizations Result [facility] Huan Brambila MD MICROBIOLOGY - GENERAL ORDERAB LES Final Result Performing Organization Address City/State/[facility] Co de Phone Number [facility] [address] [place] [address], documented in this encounter Visit Diagnoses Diagnosis Encounter for screening for COVID-19 documented in this encounter Additional Health Concerns Infection Onset Date Last Indicated Resolved Time COVID - 19 11/22/2022 02/07/2023 02/17/2023 12:1 6 AM CDT documented as of this encounter Care Teams Staff Nuclear Weapons Officer Relationship Specialty Start Date End Date Huan Brambila MD [address] [place] [address] [place] [address] PCP - General Family Medicine 10/05/21 Huan Brambila MD [address] [place] [address] [place] [address] Family Medicine 10/05/21 Fortunato Rothman MD [address] [address] Consulting Physician Otolaryngology 07/22/25 documented as of this encounter
--- OUTSIDE RECORDS SUMMARY | 2025-08-25 08:53 | XMS_ITS | Encounter Summary ---
Author Organization [facility] Address [address] [facility] [place] [address] Phone Care Team Providers Care Receiving Supervisor Name Role Phone Huan Brambila MD Primary Care Provider [phone] Huan Brambila MD Unavailable [phone] Fortunato Rothman MD Unavailable [phone] Encounter Details Date Type Department Care Team (Late st Contact Info) Description 10/05/2021 [facility] 1 [facility] [place] [address] Huan Brambila MD 4 [facility] ED[address]IN [address] [place] [address] Social History Tobacco Use Types Packs/Day Years [...] Description 02/10/2026 11:30 AM CDT Office Visit [facility] Medical Group - Ear, Nose & Throat - [place] #[address] [place] [address] Fortunato Rothman MD #[facility] [address] [address] (work) documented as of this encounter Procedures Procedure Name Priority Date/Time Associated Diagnosis Comments SARS-COV-2 BY MOLECULAR Routine 10/05/2021 7:16 AM BILINGUAL STUDENT TUTOR documented in this encounter Results * SARS-COV-2 BY MOLECULAR (10/05/2021 7:16 AM BILINGUAL STUDENT TUTOR) SARSCOV2 NOT DETECTED (Referen ce Range for this test is Not Detected ) [facility] THERMOFISHER FAST DX 10/06/2021 7:26 AM BILINGUAL STUDENT TUTOR [facility] Comment:This test was perfor med by a RT-PCR method. Other Non-Phlebotomy Collection / Unknown 10/05/2021 7:16 AM BILINGUAL STUDENT TUTOR 10/05/2021 10:42 AM BILINGUAL STUDENT TUTOR Narrative [facility] - 10/06/2021 7:26 AM BILINGUAL STUDENT TUTOR Authorized Fact Sheets about this test for providers and patients are available at: https://www.fda.gov/medical-devices/knwzormkh-awrpeodzwo-awjludv-devices/emergen -us e-authorizations us Huan Brambila MD MICROBIOLOGY - GENERAL ORDERAB LES Final Result [facility] [address] [place] [address], documented in this encounter Visit Diagnoses Not on filedocumented in this encounter Additional Health Concerns Infection Onset Date Last Indicated Resolved Time COVID - 19 08/17/2021 10/26/2021 11/01/2021 12:1 6 AM BILINGUAL STUDENT TUTOR COVID - 19 10/05/2021 11/02/2021 11/03/2021 5:59 PM BILINGUAL STUDENT TUTOR COVID - 19 Confirmed 11/02/2021 11/02/2021 021 12:16 AM BILINGUAL STUDENT TUTOR COVID - 19 11/30/2021 12/07/2021 12/20/2021 12:1 7 AM BILINGUAL STUDENT TUTOR COVID - 19 12/07/2021 12/07/2021 12/09/2021 10:5 3 AM BILINGUAL STUDENT TUTOR COVID - 19 Confirmed 12/07/2021 12/07/2021 022 12:17 AM BILINGUAL STUDENT TUTOR COVID - 19 03/01/2022 10/04/2022 10/14/2022 12:1 6 AM BILINGUAL STUDENT TUTOR COVID - 19 11/22/2022 02/07/2023 02/17/2023 12:1 6 AM CDT documented as of this encounter Care Teams Receiving Supervisor Relationship Specialty Start Date End Date Huan Brambila MD [address] [facility] [place] [address] PCP - General Family Medicine 10/05/21 Huan Brambila MD [address] [facility] [place] [address] Family Medicine 10/05/21 Fortunato Rothman MD #2 [address] [address] Consulting Physician Otolaryngology 07/22/25 documented as of this encounter
== END 2025-08-25 08:41 | disposition home or self-care (01) ==
LOC: ANHBWCAUD 08:40
PROVIDERS: PCP Family Medicine; Visit Provider Family Medicine
DX: H91.93 Unspecified hearing loss, bilateral (principal); H73.892 Other specified disorders of tympanic membrane, left ear; H91.3 Deaf nonspeaking, not elsewhere classified
CPT/HCPCS: 92552; 92555; 92567